=== PATIENT | male | born 1950 | race Caucasian/White ===

== ENCOUNTER 2017-11-27 09:09 | Outpatient (CLI) | payer OTHER, MEDICARE ==
[~2017-11-27 09:09] MED LIST: ADAL40PE SUBCUT; AMLO1TAB53 PO; ASPI-1265 PO; AZI25OT PO; CARCD120C PO; CARV-50 PO; DABI150C PO; POTA20PA3 PO; ROSU20TA PO
[2017-11-27 09:41] LABS: BASOPHILS % (AUTO) 0.5 % (0-1); EOSINOPHILS # (AUTO) 0.3 X10'3 (0-0.9); EOSINOPHILS % (AUTO) 5.4 % (0-6); HEMATOCRIT 48.3 % (42.0-52.0); HEMOGLOBIN 16.4 g/dl (14.0-17.9); LYMPHOCYTES # (AUTO) 1.9 X10'3 (1.1-4.8); MEAN CORPUSCULAR HEMOGLOBIN 29.4 PG (27.0-31.0); MEAN CORPUSCULAR VOLUME 86.6 FL (78-98); MEAN PLATELET VOLUME 8.2 FL (7.4-10.4); MONOCYTES # (AUTO) 0.6 X10'3 (0-0.9); MONOCYTES % (AUTO) 10.1 % (2-12); NEUTROPHILS # (AUTO) 3.1 X10'3 (1.8-7.7); PLATELET COUNT 251 X10'3 (140-440); RED BLOOD COUNT 5.58 X10'6 (4.70-6.10); RED CELL DISTRIBUTION WIDTH 14.3 % (11.5-14.5)
[2017-11-27 10:02] LABS: ALANINE AMINOTRANSFERASE 30 U/L (12-78); ALBUMIN/GLOBULIN RATIO 1.1 (1.1-1.5); ALKALINE PHOSPHATASE 70 IU/L (46-116); ANION GAP 9 (8-16); ASPARTATE AMINO TRANSFERASE 21 U/L (10-37); BILIRUBIN,TOTAL 0.6 MG/DL (0.1-1.0); BLOOD UREA NITROGEN 23 MG/DL (7-18); BUN/CREATININE RATIO 17.7 (5.4-32.0); CHLORIDE 104 MMOL/L (99-107); CHOL/HDL RATIO 6.8 (0.00-4.99); CHOLESTEROL 243 MG/DL (0-200); GLUCOSE 114 MG/DL (70-104); HDL CHOLESTEROL 36 MG/DL (35-60); LDL CHOLESTEROL 146 MG/DL (50-100); POTASSIUM 4.2 MMOL/L (3.5-5.1); SODIUM 144 MMOL/L (135-145); TOTAL CARBON DIOXIDE 30.7 MMOL/L (24-32); TOTAL PROTEIN 7.6 G/DL (6.4-8.2); TRIGLYCERIDES 321 MG/DL (20-135); eGFR 55 ML/MIN
[2017-12-01 05:20] LABS: PSA, ULTRASENSITIVE W/O SERIAL 0.389 ng/mL (0.000-4.000)
== END 2017-11-27 23:59 | disposition home or self-care (01) ==
LOC: LAB 09:09
DX: Z12.5 Encounter for screening for malignant neoplasm of prostate (principal); E78.5 Hyperlipidemia, unspecified; I10 Essential (primary) hypertension; Z87.891 Personal history of nicotine dependence
CPT/HCPCS: 36415; 80053; 80061; 84153; 84402; 84403; 85025

== ENCOUNTER 2018-01-21 08:34 | Outpatient (CLI) | payer OTHER, MEDICARE ==
[2018-01-21 09:16] LABS: CHOLESTEROL 133 MG/DL (0-200); HDL CHOLESTEROL 44 MG/DL (35-60); LDL CHOLESTEROL 63 MG/DL (50-100); TRIGLYCERIDES 172 MG/DL (20-135)
== END 2018-01-21 23:59 | disposition home or self-care (01) ==
LOC: LAB 08:34
PROVIDERS: ATTEND Internal Medicine Interventional Cardiology
DX: E78.4 Other hyperlipidemia (principal); I10 Essential (primary) hypertension; F17.200 Nicotine dependence, unspecified, uncomplicated
CPT/HCPCS: 36415; 80061

== ENCOUNTER 2018-04-22 08:36 | Outpatient (CLI) | payer OTHER, MEDICARE | END 2018-04-22 23:59 | disposition home or self-care (01) | LOC: 64 CT 08:36 | DX: N20.0 Calculus of kidney (principal); I10 Essential (primary) hypertension; Z87.891 Personal history of nicotine dependence | CPT/HCPCS: 74176 ==

== ENCOUNTER 2018-05-06 08:56 | Outpatient (CLI) | payer OTHER, MEDICARE ==
[2018-05-06 09:51] LABS: BASOPHILS % (AUTO) 0.4 % (0-1); EOSINOPHILS # (AUTO) 0.5 X10'3 (0-0.9); EOSINOPHILS % (AUTO) 4.8 % (0-6); HEMATOCRIT 54.1 % (42.0-52.0); LYMPHOCYTES # (AUTO) 2.2 X10'3 (1.1-4.8); LYMPHOCYTES % (AUTO) 20.5 % (21-51); MEAN CORPUSCULAR HEMOGLOBIN 27.6 PG (27.0-31.0); MEAN CORPUSCULAR HGB CONC 33.4 % (33.0-36.5); MEAN CORPUSCULAR VOLUME 82.6 FL (78-98); MEAN PLATELET VOLUME 8.8 FL (7.4-10.4); MONOCYTES % (AUTO) 9.4 % (2-12); NEUTROPHILS # (AUTO) 6.9 X10'3 (1.8-7.7); NEUTROPHILS % (AUTO) 64.9 % (42-75); PLATELET COUNT 248 X10'3 (140-440); RED BLOOD COUNT 6.55 X10'6 (4.70-6.10); RED CELL DISTRIBUTION WIDTH 14.3 % (11.5-14.5); WHITE BLOOD COUNT 10.6 X10'3 (4.5-11.0)
[2018-05-06 09:56] LABS: HEMOGLOBIN 18.1 g/dl (14.0-17.9)
[2018-05-06 10:08] LABS: ALANINE AMINOTRANSFERASE 42 U/L (12-78); ALBUMIN/GLOBULIN RATIO 0.9 (1.1-1.5); ALKALINE PHOSPHATASE 84 IU/L (46-116); ANION GAP 8 (8-16); ASPARTATE AMINO TRANSFERASE 29 U/L (10-37); BILIRUBIN,TOTAL 0.7 MG/DL (0.1-1.0); BLOOD UREA NITROGEN 11 MG/DL (7-18); BUN/CREATININE RATIO 9.6 (5.4-32.0); CALCIUM 9.1 MG/DL (8.5-10.1); CHLORIDE 101 MMOL/L (99-107); CREATININE 1.15 MG/DL (0.60-1.10); GLUCOSE 95 MG/DL (70-104); LIPASE 148 U/L (73-393); POTASSIUM 4.2 MMOL/L (3.5-5.1); SODIUM 136 MMOL/L (135-145); TOTAL CARBON DIOXIDE 27.1 MMOL/L (24-32); TOTAL PROTEIN 8.3 G/DL (6.4-8.2); eGFR 64 ML/MIN
[2018-05-07 14:33] LABS: CARBOHYDRATE ANTIGEN 19-9 8 U/mL (0-35)
[2018-05-07 17:17] LABS: ANTINUCLEAR ANTIBODIES Negative (Negative)
[2018-05-12 05:59] LABS: IMMUNOGLOBULIN G, QN, SERUM 1029 mg/dL (700-1600)
== END 2018-05-06 23:59 | disposition home or self-care (01) ==
LOC: LAB 08:56
PROVIDERS: ATTEND Internal Medicine Gastroenterology
DX: K86.1 Other chronic pancreatitis (principal); C25.0 Malignant neoplasm of head of pancreas; R10.9 Unspecified abdominal pain; I10 Essential (primary) hypertension; Z87.891 Personal history of nicotine dependence
CPT/HCPCS: 36415; 80053; 82784; 82787; 83690; 85025; 86038; 86301

== ENCOUNTER 2018-07-21 09:00 | Outpatient (CLI) | payer OTHER, MEDICARE ==
[~2018-07-21 09:00] MED LIST changes: -POTA20PA3 PO; +POTA20PA40 PO
== END 2018-07-21 23:59 | disposition home or self-care (01) ==
LOC: LAB 09:00
PROVIDERS: ATTEND Internal Medicine Gastroenterology
DX: C25.0 Malignant neoplasm of head of pancreas (principal); K86.1 Other chronic pancreatitis; I10 Essential (primary) hypertension; Z87.891 Personal history of nicotine dependence; Z72.89 Other problems related to lifestyle; Z79.82 Long term (current) use of aspirin
CPT/HCPCS: 36415; 82784; 82787; 83690

== ENCOUNTER 2018-12-30 11:08 | Outpatient (CLI) | payer OTHER, MEDICARE ==
[~2018-12-30 11:08] MED LIST changes: +AMLO-363 PO; -AMLO1TAB53 PO
[2018-12-30 11:47] LABS: ALBUMIN 3.8 G/DL (3.4-5.0); ANION GAP 9 (8-16); BLOOD UREA NITROGEN 14 MG/DL (7-18); BUN/CREATININE RATIO 12.2 (5.4-32.0); CHLORIDE 103 MMOL/L (99-107); CREATININE 1.15 MG/DL (0.60-1.10); GLUCOSE 119 MG/DL (70-104); POTASSIUM 4.6 MMOL/L (3.5-5.1); SODIUM 138 MMOL/L (135-145); eGFR 63 ML/MIN
== END 2018-12-30 23:59 | disposition home or self-care (01) ==
LOC: LAB 11:08
PROVIDERS: ATTEND Internal Medicine Interventional Cardiology
DX: I48.0 Paroxysmal atrial fibrillation (principal); I25.10 Atherosclerotic heart disease of native coronary artery without angina pectoris; E78.49 Other hyperlipidemia; D45 Polycythemia vera; R09.89 Other specified symptoms and signs involving the circulatory and respiratory systems; G47.33 Obstructive sleep apnea (adult) (pediatric); I10 Essential (primary) hypertension; Z88.0 Allergy status to penicillin; Z87.891 Personal history of nicotine dependence; Z79.899 Other long term (current) drug therapy
CPT/HCPCS: 36415; 80048

== ENCOUNTER 2019-04-04 09:00 | Outpatient (CLI) | payer OTHER, MEDICARE ==
[~2019-04-04 09:00] MED LIST changes: -ROSU20TA PO; +ROSU20TA2 PO
[2019-04-04 09:52] LABS: BASOPHILS # (AUTO) 0.1 X10'3 (0-0.2); MEAN PLATELET VOLUME 8.9 FL (7.4-10.4); NEUTROPHILS # (AUTO) 5.1 X10'3 (1.8-7.7)
[2019-04-04 09:53] LABS: ALANINE AMINOTRANSFERASE 39 U/L (12-78); ALBUMIN 4.1 G/DL (3.4-5.0); ALBUMIN/GLOBULIN RATIO 1.1 (1.1-1.5); ALKALINE PHOSPHATASE 69 IU/L (46-116); ANION GAP 5 (8-16); ASPARTATE AMINO TRANSFERASE 26 U/L (10-37); BILIRUBIN,TOTAL 0.8 MG/DL (0.1-1.0); BLOOD UREA NITROGEN 19 MG/DL (7-18); CALCIUM 8.7 MG/DL (8.5-10.1); CHLORIDE 103 MMOL/L (99-107); CHOLESTEROL 133 MG/DL (0-200); CREATININE 1.12 MG/DL (0.60-1.10); GLUCOSE 102 MG/DL (70-104); HDL CHOLESTEROL 45 MG/DL (35-60); LDL CHOLESTEROL 70 MG/DL (50-100); POTASSIUM 4.3 MMOL/L (3.5-5.1); SODIUM 138 MMOL/L (135-145); TOTAL PROTEIN 7.8 G/DL (6.4-8.2); TRIGLYCERIDES 143 MG/DL (20-135); eGFR 65 ML/MIN
[2019-04-04 09:54] LABS: BASOPHILS % (AUTO) 0.6 % (0-1); EOSINOPHILS # (AUTO) 0.3 X10'3 (0-0.9); EOSINOPHILS % (AUTO) 4.1 % (0-6); HEMATOCRIT 54.4 % (42.0-52.0); LYMPHOCYTES % (AUTO) 23.8 % (21-51); MEAN CORPUSCULAR HEMOGLOBIN 28.3 PG (27.0-31.0); MEAN CORPUSCULAR HGB CONC 34.2 g/dL (33.0-36.5); MEAN CORPUSCULAR VOLUME 82.9 FL (78-98); MONOCYTES # (AUTO) 0.9 X10'3 (0-0.9); MONOCYTES % (AUTO) 10.3 % (2-12); NEUTROPHILS % (AUTO) 61.2 % (42-75); PLATELET COUNT 226 X10'3 (140-440); RED BLOOD COUNT 6.57 X10'6 (4.70-6.10); RED CELL DISTRIBUTION WIDTH 15.7 % (11.5-14.5); WHITE BLOOD COUNT 8.3 X10'3 (4.5-11.0)
[2019-04-04 10:06] LABS: HEMOGLOBIN 18.6 g/dl (14.0-17.9)
[2019-04-04 10:21] LABS: PLATELET ESTIMATE NORMAL; TOTAL CELLS COUNTED 100
[2019-04-04 10:22] LABS: ANISOCYTOSIS 1+
== END 2019-04-04 23:59 | disposition home or self-care (01) ==
LOC: LAB 09:00
DX: Z12.5 Encounter for screening for malignant neoplasm of prostate (principal); I10 Essential (primary) hypertension; E78.5 Hyperlipidemia, unspecified; Z87.891 Personal history of nicotine dependence
CPT/HCPCS: 36415; 80053; 80061; 84153; 85025

== ENCOUNTER 2019-05-03 14:14 | Emergency (ER) | payer OTHER, MEDICARE ==
[~2019-05-03] VITALS: Ht 182.9 cm; Wt 89.0 kg
[2019-05-03] MEDS ORDERED: acetaminophen 325mg tablet PO ONE (15:10)
[2019-05-03 15:37] VITALS: BP 151/78
== END 2019-05-03 15:52 | disposition home or self-care (01) ==
LOC: ER 14:15
DX: S81.812A Laceration without foreign body, left lower leg, initial encounter (principal); I25.10 Atherosclerotic heart disease of native coronary artery without angina pectoris; E78.00 Pure hypercholesterolemia, unspecified; I10 Essential (primary) hypertension; M19.90 Unspecified osteoarthritis, unspecified site; I48.91 Unspecified atrial fibrillation; Z98.61 Coronary angioplasty status; Z90.89 Acquired absence of other organs; Z98.890 Other specified postprocedural states; Z88.0 Allergy status to penicillin; Z79.82 Long term (current) use of aspirin; Z79.899 Other long term (current) drug therapy; X58.XXXA Exposure to other specified factors, initial encounter; Y93.89 Activity, other specified; Y92.89 Other specified places as the place of occurrence of the external cause; Y99.8 Other external cause status
CPT/HCPCS: 12001; 93971; 99284

== ENCOUNTER 2019-07-22 08:29 | Emergency (ER) | payer OTHER, MEDICARE ==
[~2019-07-22] VITALS: Ht 182.9 cm; Wt 90.0 kg
[2019-07-22 10:30] VITALS: BP 154/99
== END 2019-07-22 11:11 | disposition home or self-care (01) ==
LOC: ER 08:29
DX: S92.352A Displaced fracture of fifth metatarsal bone, left foot, initial encounter for closed fracture (principal); I25.10 Atherosclerotic heart disease of native coronary artery without angina pectoris; E78.00 Pure hypercholesterolemia, unspecified; I10 Essential (primary) hypertension; M19.90 Unspecified osteoarthritis, unspecified site; Z95.5 Presence of coronary angioplasty implant and graft; Z90.89 Acquired absence of other organs; Z88.0 Allergy status to penicillin; Z79.82 Long term (current) use of aspirin; Z79.899 Other long term (current) drug therapy; X50.1XXA Overexertion from prolonged static or awkward postures, initial encounter; Y93.89 Activity, other specified; Y92.89 Other specified places as the place of occurrence of the external cause; Y99.9 Unspecified external cause status
CPT/HCPCS: 73564; 73630; 99284

== ENCOUNTER 2019-07-27 10:38 | Outpatient (CLI) | payer OTHER, MEDICARE ==
[2019-07-27 12:31] LABS: BASOPHILS # (AUTO) 0.1 X10'3 (0-0.2); BASOPHILS % (AUTO) 0.9 % (0-1); EOSINOPHILS # (AUTO) 0.3 X10'3 (0-0.9); HEMATOCRIT 56.3 % (42.0-52.0); LYMPHOCYTES # (AUTO) 2.2 X10'3 (1.1-4.8); LYMPHOCYTES % (AUTO) 20.2 % (21-51); MEAN CORPUSCULAR HEMOGLOBIN 29.3 PG (27.0-31.0); MEAN CORPUSCULAR HGB CONC 34.3 g/dL (33.0-36.5); MEAN CORPUSCULAR VOLUME 85.4 FL (78-98); MEAN PLATELET VOLUME 8.2 FL (7.4-10.4); MONOCYTES # (AUTO) 1.1 X10'3 (0-0.9); NEUTROPHILS % (AUTO) 65.9 % (42-75); PLATELET COUNT 260 X10'3 (140-440); RED BLOOD COUNT 6.59 X10'6 (4.70-6.10); RED CELL DISTRIBUTION WIDTH 15.5 % (11.5-14.5); WHITE BLOOD COUNT 10.7 X10'3 (4.5-11.0)
[2019-07-27 12:43] LABS: ALANINE AMINOTRANSFERASE 49 U/L (12-78); ALBUMIN 4.2 G/DL (3.4-5.0); ALBUMIN/GLOBULIN RATIO 1.1 (1.1-1.5); ALKALINE PHOSPHATASE 86 IU/L (46-116); ANION GAP 10 (8-16); ASPARTATE AMINO TRANSFERASE 26 U/L (10-37); BILIRUBIN,TOTAL 0.6 MG/DL (0.1-1.0); BLOOD UREA NITROGEN 11 MG/DL (7-18); BUN/CREATININE RATIO 9.6 (5.4-32.0); CALCIUM 8.9 MG/DL (8.5-10.1); CHLORIDE 103 MMOL/L (99-107); CREATININE 1.14 MG/DL (0.60-1.10); GLUCOSE 83 MG/DL (70-104); POTASSIUM 4.1 MMOL/L (3.5-5.1); SODIUM 141 MMOL/L (135-145); TOTAL CARBON DIOXIDE 28.2 MMOL/L (24-32); eGFR 64 ML/MIN
[2019-07-27 12:55] LABS: HEMOGLOBIN 19.3 g/dl (14.0-17.9)
[2019-07-30 19:38] LABS: IMMUNOGLOBULIN G, QN, SERUM 862 mg/dL (700-1600)
== END 2019-07-27 23:59 | disposition home or self-care (01) ==
LOC: RAD 10:38
DX: S83.242A Other tear of medial meniscus, current injury, left knee, initial encounter (principal); M94.262 Chondromalacia, left knee; R60.0 Localized edema; X58.XXXA Exposure to other specified factors, initial encounter; Y93.89 Activity, other specified; Y92.89 Other specified places as the place of occurrence of the external cause; Y99.8 Other external cause status
CPT/HCPCS: 36415; 73718; 80053; 82784; 82787; 85025

== ENCOUNTER 2019-08-04 12:32 | Outpatient (CLI) | payer OTHER, MEDICARE | END 2019-08-04 13:30 | disposition home or self-care (01) | LOC: ORTHO 12:32 | PROVIDERS: ATTEND Orthopaedic Surgery | DX: S80.02XD Contusion of left knee, subsequent encounter (principal); I10 Essential (primary) hypertension; F17.200 Nicotine dependence, unspecified, uncomplicated; X58.XXXD Exposure to other specified factors, subsequent encounter | CPT/HCPCS: G0463 ==

== ENCOUNTER → 2019-09-09 | Outpatient (CLI) | payer MEDICARE, OTHER ==
[2019-09-09 12:49] LABS: BASOPHILS # (AUTO) 0.1 X10'3 (0-0.2); BASOPHILS % (AUTO) 0.9 % (0-1); EOSINOPHILS # (AUTO) 0.3 X10'3 (0-0.9); EOSINOPHILS % (AUTO) 5.1 % (0-6); HEMATOCRIT 50.3 % (42.0-52.0); HEMOGLOBIN 17.5 g/dl (14.0-17.9); LYMPHOCYTES # (AUTO) 1.8 X10'3 (1.1-4.8); LYMPHOCYTES % (AUTO) 27.4 % (21-51); MEAN CORPUSCULAR HEMOGLOBIN 29.2 PG (27.0-31.0); MEAN CORPUSCULAR HGB CONC 34.8 g/dL (33.0-36.5); MEAN CORPUSCULAR VOLUME 83.9 FL (78-98); MONOCYTES # (AUTO) 0.6 X10'3 (0-0.9); MONOCYTES % (AUTO) 9.2 % (2-12); NEUTROPHILS # (AUTO) 3.7 X10'3 (1.8-7.7); NEUTROPHILS % (AUTO) 57.4 % (42-75); PLATELET COUNT 229 X10'3 (140-440); RED CELL DISTRIBUTION WIDTH 13.9 % (11.5-14.5); WHITE BLOOD COUNT 6.4 X10'3 (4.5-11.0)
== END | disposition home or self-care (01) ==
LOC: LAB 12:12
PROVIDERS: ATTEND Internal Medicine Hematology
DX: D75.1 Secondary polycythemia (principal); I10 Essential (primary) hypertension; Z87.891 Personal history of nicotine dependence
CPT/HCPCS: 36415; 85025

== ENCOUNTER 2019-10-27 09:44 | Outpatient (CLI) | payer OTHER ==
[2019-10-27 10:34] LABS: BASOPHILS # (AUTO) 0.1 X10'3 (0-0.2); BASOPHILS % (AUTO) 0.8 % (0-1); EOSINOPHILS # (AUTO) 0.2 X10'3 (0-0.9); EOSINOPHILS % (AUTO) 3.1 % (0-6); HEMATOCRIT 50.5 % (42.0-52.0); HEMOGLOBIN 17.3 g/dl (14.0-17.9); LYMPHOCYTES % (AUTO) 30.5 % (21-51); MEAN CORPUSCULAR HEMOGLOBIN 29.8 PG (27.0-31.0); MEAN CORPUSCULAR HGB CONC 34.3 g/dL (33.0-36.5); MEAN CORPUSCULAR VOLUME 86.7 FL (78-98); MEAN PLATELET VOLUME 8.2 FL (7.4-10.4); MONOCYTES # (AUTO) 0.7 X10'3 (0-0.9); MONOCYTES % (AUTO) 11.2 % (2-12); NEUTROPHILS # (AUTO) 3.5 X10'3 (1.8-7.7); NEUTROPHILS % (AUTO) 54.4 % (42-75); PLATELET COUNT 230 X10'3 (140-440); RED BLOOD COUNT 5.82 X10'6 (4.70-6.10); RED CELL DISTRIBUTION WIDTH 15.8 % (11.5-14.5); WHITE BLOOD COUNT 6.5 X10'3 (4.5-11.0)
[2019-10-27 10:50] LABS: ALANINE AMINOTRANSFERASE 44 U/L (12-78); ALBUMIN 4.3 G/DL (3.4-5.0); ALBUMIN/GLOBULIN RATIO 1.3 (1.1-1.5); ALKALINE PHOSPHATASE 73 IU/L (46-116); ANION GAP 5 (8-16); ASPARTATE AMINO TRANSFERASE 23 U/L (10-37); BILIRUBIN,TOTAL 0.6 MG/DL (0.1-1.0); BLOOD UREA NITROGEN 20 MG/DL (7-18); BUN/CREATININE RATIO 17.7 (5.4-32.0); CALCIUM 9.2 MG/DL (8.5-10.1); CHLORIDE 107 MMOL/L (99-107); CREATININE 1.13 MG/DL (0.60-1.10); GLUCOSE 109 MG/DL (70-104); POTASSIUM 4.2 MMOL/L (3.5-5.1); SODIUM 141 MMOL/L (135-145); TOTAL CARBON DIOXIDE 29.3 MMOL/L (24-32); TOTAL PROTEIN 7.7 G/DL (6.4-8.2); eGFR 65 ML/MIN
== END 2019-10-27 23:59 | disposition home or self-care (01) ==
LOC: LAB 09:44
PROVIDERS: ATTEND Internal Medicine Hematology
DX: D75.1 Secondary polycythemia (principal); I10 Essential (primary) hypertension; Z88.0 Allergy status to penicillin
CPT/HCPCS: 36415; 80053; 85025

== ENCOUNTER 2020-04-04 08:06 | Outpatient (CLI) | payer OTHER ==
[2020-04-04 08:51] LABS: HEMOGLOBIN A1C 5.9 % (4.5-6.2)
[2020-04-04 08:53] LABS: BASOPHILS % (AUTO) 0.7 % (0-1); EOSINOPHILS # (AUTO) 0.2 X10'3 (0-0.9); HEMATOCRIT 54.9 % (42.0-52.0); LYMPHOCYTES # (AUTO) 1.7 X10'3 (1.1-4.8); LYMPHOCYTES % (AUTO) 23.1 % (21-51); MEAN CORPUSCULAR HEMOGLOBIN 27.9 PG (27.0-31.0); MEAN CORPUSCULAR HGB CONC 32.9 g/dL (33.0-36.5); MEAN PLATELET VOLUME 8.6 FL (7.4-10.4); MONOCYTES # (AUTO) 0.7 X10'3 (0-0.9); MONOCYTES % (AUTO) 9.9 % (2-12); NEUTROPHILS # (AUTO) 4.7 X10'3 (1.8-7.7); NEUTROPHILS % (AUTO) 63.3 % (42-75); PLATELET COUNT 204 X10'3 (140-440); RED BLOOD COUNT 6.47 X10'6 (4.70-6.10); RED CELL DISTRIBUTION WIDTH 16.2 % (11.5-14.5); WHITE BLOOD COUNT 7.4 X10'3 (4.5-11.0)
[2020-04-04 08:55] LABS: ALANINE AMINOTRANSFERASE 55 U/L (12-78); ALBUMIN 4.2 G/DL (3.4-5.0); ALBUMIN/GLOBULIN RATIO 1.2 (1.1-1.5); ALKALINE PHOSPHATASE 73 IU/L (46-116); ANION GAP 6 (8-16); ASPARTATE AMINO TRANSFERASE 29 U/L (10-37); BILIRUBIN,TOTAL 0.9 MG/DL (0.1-1.0); BLOOD UREA NITROGEN 15 MG/DL (7-18); BUN/CREATININE RATIO 12.4 (5.4-32.0); CHLORIDE 105 MMOL/L (99-107); CHOL/HDL RATIO 2.7 (0.00-4.99); CHOLESTEROL 148 MG/DL (0-200); CREATININE 1.21 MG/DL (0.60-1.10); GLUCOSE 103 MG/DL (70-104); HDL CHOLESTEROL 54 MG/DL (35-60); LDL CHOLESTEROL 75 MG/DL (50-100); POTASSIUM 3.9 MMOL/L (3.5-5.1); SODIUM 141 MMOL/L (135-145); TOTAL CARBON DIOXIDE 30.5 MMOL/L (24-32); TOTAL PROTEIN 7.6 G/DL (6.4-8.2); TRIGLYCERIDES 101 MG/DL (20-135); eGFR 60 ML/MIN
[2020-04-04 08:58] LABS: HEMOGLOBIN 18.1 g/dl (14.0-17.9)
[2020-04-05 13:12] LABS: PSA, ULTRASENSITIVE W/O SERIAL 0.577 ng/mL (0.000-4.000)
[2020-04-05 17:13] LABS: MICROALB/CRT, RATIO 168 mg/g creat (0-29)
== END 2020-04-04 23:59 | disposition home or self-care (01) ==
LOC: LAB SPEC 08:06 → LAB 23:59
DX: Z12.5 Encounter for screening for malignant neoplasm of prostate (principal); I10 Essential (primary) hypertension; E78.5 Hyperlipidemia, unspecified
CPT/HCPCS: 36415; 80053; 80061; 82043; 82570; 83036; 84153; 84402; 84403; 85025

== ENCOUNTER → 2020-06-29 | Outpatient (CLI) | payer BC ==
[2020-06-29 08:54] LABS: CHOL/HDL RATIO 5.5 (0.00-4.99); CHOLESTEROL 227 MG/DL (0-200); HDL CHOLESTEROL 41 MG/DL (35-60); LDL CHOLESTEROL 160 MG/DL (50-100); TRIGLYCERIDES 154 MG/DL (20-135)
== END | disposition home or self-care (01) ==
LOC: LAB 07:32
DX: E78.5 Hyperlipidemia, unspecified (principal)
CPT/HCPCS: 36415; 80061; 84402; 84403

== ENCOUNTER 2020-10-15 12:00 | Outpatient (CLI) | payer BC ==
[2020-10-15 12:44] LABS: BASOPHILS # (AUTO) 0.1 X10'3 (0-0.2); BASOPHILS % (AUTO) 0.9 % (0-1); EOSINOPHILS # (AUTO) 0.3 X10'3 (0-0.9); EOSINOPHILS % (AUTO) 4.8 % (0-6); HEMATOCRIT 51.7 % (42.0-52.0); HEMOGLOBIN 17.1 g/dl (14.0-17.9); LYMPHOCYTES # (AUTO) 2.2 X10'3 (1.1-4.8); LYMPHOCYTES % (AUTO) 30.1 % (21-51); MEAN CORPUSCULAR HEMOGLOBIN 26.7 PG (27.0-31.0); MEAN CORPUSCULAR HGB CONC 33.1 g/dL (33.0-36.5); MEAN CORPUSCULAR VOLUME 80.8 FL (78-98); MEAN PLATELET VOLUME 8.3 FL (7.4-10.4); MONOCYTES # (AUTO) 0.7 X10'3 (0-0.9); NEUTROPHILS # (AUTO) 3.9 X10'3 (1.8-7.7); NEUTROPHILS % (AUTO) 54.2 % (42-75); PLATELET COUNT 263 X10'3 (140-440); RED CELL DISTRIBUTION WIDTH 15.3 % (11.5-14.5); WHITE BLOOD COUNT 7.2 X10'3 (4.5-11.0)
[2020-10-15 12:59] LABS: ALANINE AMINOTRANSFERASE 47 U/L (12-78); ALBUMIN 4.4 G/DL (3.4-5.0); ALBUMIN/GLOBULIN RATIO 1.2 (1.1-1.5); ALKALINE PHOSPHATASE 77 IU/L (46-116); ANION GAP 10 (8-16); ASPARTATE AMINO TRANSFERASE 27 U/L (10-37); BILIRUBIN,DIRECT 0.1 MG/DL (0-0.3); BILIRUBIN,TOTAL 0.5 MG/DL (0.1-1.0); BLOOD UREA NITROGEN 16 MG/DL (7-18); BUN/CREATININE RATIO 15.4 (5.4-32.0); CALCIUM 9.1 MG/DL (8.5-10.1); CHLORIDE 106 MMOL/L (99-107); CHOL/HDL RATIO 3.2 (0.00-4.99); CHOLESTEROL 172 MG/DL (0-200); CREATININE 1.04 MG/DL (0.60-1.10); GLUCOSE 105 MG/DL (70-104); HDL CHOLESTEROL 53 MG/DL (35-60); LDL CHOLESTEROL 96 MG/DL (50-100); POTASSIUM 4.7 MMOL/L (3.5-5.1); SODIUM 143 MMOL/L (135-145); TOTAL CARBON DIOXIDE 26.6 MMOL/L (24-32); TOTAL PROTEIN 8.1 G/DL (6.4-8.2); TRIGLYCERIDES 150 MG/DL (20-135); eGFR 71 ML/MIN
== END 2020-10-15 23:59 | disposition home or self-care (01) ==
LOC: CARD DIAG 12:00
PROVIDERS: ATTEND Nurse Practitioner Family
DX: I08.0 Rheumatic disorders of both mitral and aortic valves (principal); E78.5 Hyperlipidemia, unspecified; I25.10 Atherosclerotic heart disease of native coronary artery without angina pectoris; I48.0 Paroxysmal atrial fibrillation
CPT/HCPCS: 36415; 80053; 80061; 82248; 85025; 93306

== ENCOUNTER → 2021-04-08 | Outpatient (CLI) | payer BC ==
[2021-04-08 08:56] LABS: BASOPHILS # (AUTO) 0.1 X10'3 (0-0.2); BASOPHILS % (AUTO) 1.1 % (0-1); EOSINOPHILS # (AUTO) 0.5 X10'3 (0-0.9); EOSINOPHILS % (AUTO) 4.9 % (0-6); HEMATOCRIT 52.8 % (42.0-52.0); LYMPHOCYTES # (AUTO) 1.8 X10'3 (1.1-4.8); LYMPHOCYTES % (AUTO) 18.7 % (21-51); MEAN CORPUSCULAR HEMOGLOBIN 27.8 PG (27.0-31.0); MEAN CORPUSCULAR HGB CONC 34.1 g/dL (33.0-36.5); MEAN CORPUSCULAR VOLUME 81.5 FL (78-98); MEAN PLATELET VOLUME 8.2 FL (7.4-10.4); MONOCYTES # (AUTO) 0.8 X10'3 (0-0.9); MONOCYTES % (AUTO) 8.1 % (2-12); NEUTROPHILS # (AUTO) 6.5 X10'3 (1.8-7.7); NEUTROPHILS % (AUTO) 67.2 % (42-75); PLATELET COUNT 302 X10'3 (140-440); RED BLOOD COUNT 6.47 X10'6 (4.70-6.10); RED CELL DISTRIBUTION WIDTH 14.3 % (11.5-14.5); WHITE BLOOD COUNT 9.6 X10'3 (4.5-11.0)
[2021-04-08 09:15] LABS: CLARITY,URINE SLIGHTLY CLOUDY (Clear); COLOR,URINE YELLOW (Yellow); GLUCOSE, URINE NEGATIVE (Neg); KETONES,URINE NEGATIVE (Neg); LEUKOCYTE ESTERASE ,URINE NEGATIVE (Neg); NITRITES, URINE NEGATIVE (Neg); OCCULT BLOOD,URINE TRACE-LYSED (Neg); PROTEIN,URINE 100 mg/dl (Neg); UROBILINOGEN,URINE 0.2 E.U/dL (0.2-1.0)
[2021-04-08 09:23] LABS: UA COLLECTION TYPE CLN CATCH MIDSTREAM
[2021-04-08 09:29] LABS: MUCUS STRANDS NONE SEEN /LPF (Neg); SQUAMOUS EPITHELIAL CELL,UR NONE SEEN /LPF (FEW); TRANSITIONAL EPI CELLS,URINE FEW /HPF
[2021-04-08 09:30] LABS: BACTERIA,URINE NONE SEEN /HPF (Neg); RBC,URINE 0-2 /HPF (0-2); WBC,URINE NONE SEEN /HPF (0-4)
[2021-04-08 09:33] LABS: ALANINE AMINOTRANSFERASE 31 U/L (12-78); ALBUMIN 4.4 G/DL (3.4-5.0); ALBUMIN/GLOBULIN RATIO 1.2 (1.1-1.5); ALKALINE PHOSPHATASE 93 IU/L (46-116); ANION GAP 8 (8-16); ASPARTATE AMINO TRANSFERASE 25 U/L (10-37); BILIRUBIN,TOTAL 0.7 MG/DL (0.1-1.0); BLOOD UREA NITROGEN 19 MG/DL (7-18); CALCIUM 9.1 MG/DL (8.5-10.1); CHLORIDE 104 MMOL/L (99-107); CHOL/HDL RATIO 3.3 (0.00-4.99); CHOLESTEROL 156 MG/DL (0-200); CREATININE 1.12 MG/DL (0.60-1.10); GLUCOSE 122 MG/DL (70-104); HDL CHOLESTEROL 48 MG/DL (35-60); LDL CHOLESTEROL 77 MG/DL (50-100); POTASSIUM 4.7 MMOL/L (3.5-5.1); SODIUM 139 MMOL/L (135-145); TOTAL CARBON DIOXIDE 26.8 MMOL/L (24-32); TOTAL PROTEIN 8.2 G/DL (6.4-8.2); TRIGLYCERIDES 165 MG/DL (20-135); eGFR 65 ML/MIN
== END | disposition home or self-care (01) ==
LOC: LAB 08:13
PROVIDERS: ATTEND Family Medicine
DX: E78.5 Hyperlipidemia, unspecified (principal); D64.9 Anemia, unspecified; R53.83 Other fatigue; E07.9 Disorder of thyroid, unspecified; N30.90 Cystitis, unspecified without hematuria
CPT/HCPCS: 36415; 80053; 80061; 81001; 84439; 84443; 85025

== ENCOUNTER 2021-09-30 08:14 | Outpatient (CLI) | payer BC ==
[2021-09-30 09:34] LABS: BASOPHILS % (AUTO) 0.5 % (0-1); EOSINOPHILS # (AUTO) 0.4 X10'3 (0-0.9); EOSINOPHILS % (AUTO) 4.8 % (0-6); HEMATOCRIT 50.1 % (42.0-52.0); HEMOGLOBIN 17.2 g/dl (14.0-17.9); LYMPHOCYTES # (AUTO) 1.8 X10'3 (1.1-4.8); LYMPHOCYTES % (AUTO) 22.5 % (21-51); MEAN CORPUSCULAR HEMOGLOBIN 29.1 PG (27.0-31.0); MEAN CORPUSCULAR HGB CONC 34.4 g/dL (33.0-36.5); MEAN CORPUSCULAR VOLUME 84.6 FL (78-98); MEAN PLATELET VOLUME 8.6 FL (7.4-10.4); MONOCYTES # (AUTO) 0.7 X10'3 (0-0.9); MONOCYTES % (AUTO) 8.2 % (2-12); NEUTROPHILS # (AUTO) 5.1 X10'3 (1.8-7.7); PLATELET COUNT 244 X10'3 (140-440); RED BLOOD COUNT 5.92 X10'6 (4.70-6.10); RED CELL DISTRIBUTION WIDTH 13.7 % (11.5-14.5)
[2021-09-30 09:43] LABS: ALANINE AMINOTRANSFERASE 51 U/L (12-78); ALBUMIN 4.1 G/DL (3.4-5.0); ALBUMIN/GLOBULIN RATIO 1.1 (1.1-1.5); ALKALINE PHOSPHATASE 85 IU/L (46-116); ANION GAP 8 (8-16); ASPARTATE AMINO TRANSFERASE 25 U/L (10-37); BILIRUBIN,TOTAL 0.5 MG/DL (0.1-1.0); BLOOD UREA NITROGEN 18 MG/DL (7-18); CALCIUM 8.8 MG/DL (8.5-10.1); CHLORIDE 107 MMOL/L (99-107); CHOL/HDL RATIO 3.7 (0.00-4.99); CHOLESTEROL 172 MG/DL (0-200); CREATININE 1.06 MG/DL (0.60-1.10); GLUCOSE 133 MG/DL (70-104); HDL CHOLESTEROL 47 MG/DL (35-60); LDL CHOLESTEROL 94 MG/DL (50-100); POTASSIUM 4.2 MMOL/L (3.5-5.1); SODIUM 143 MMOL/L (135-145); TOTAL CARBON DIOXIDE 28.5 MMOL/L (24-32); TOTAL PROTEIN 7.9 G/DL (6.4-8.2); TRIGLYCERIDES 173 MG/DL (20-135); eGFR 69 ML/MIN
[2021-10-01 09:35] LABS: PSA, ULTRASENSITIVE W/O SERIAL 0.481 ng/mL (0.000-4.000)
== END 2021-09-30 23:59 | disposition home or self-care (01) ==
LOC: LAB 08:14
PROVIDERS: ATTEND Family Medicine
DX: I10 Essential (primary) hypertension (principal); E78.5 Hyperlipidemia, unspecified; D58.2 Other hemoglobinopathies
CPT/HCPCS: 36415; 80053; 80061; 84153; 84402; 84403; 85025

== ENCOUNTER 2022-05-30 08:17 | Outpatient (CLI) | payer BC ==
[2022-05-30 08:45] LABS: BASOPHILS # (AUTO) 0.1 X10'3 (0-0.2); BASOPHILS % (AUTO) 1.1 % (0-1); EOSINOPHILS # (AUTO) 0.4 X10'3 (0-0.9); HEMATOCRIT 51.3 % (42.0-52.0); HEMOGLOBIN 17.7 g/dl (14.0-17.9); LYMPHOCYTES # (AUTO) 1.7 X10'3 (1.1-4.8); LYMPHOCYTES % (AUTO) 28.5 % (21-51); MEAN CORPUSCULAR HGB CONC 34.6 g/dL (33.0-36.5); MEAN CORPUSCULAR VOLUME 83.7 FL (78-98); MEAN PLATELET VOLUME 8.4 FL (7.4-10.4); MONOCYTES # (AUTO) 0.6 X10'3 (0-0.9); MONOCYTES % (AUTO) 10.6 % (2-12); NEUTROPHILS # (AUTO) 3.2 X10'3 (1.8-7.7); NEUTROPHILS % (AUTO) 52.8 % (42-75); PLATELET COUNT 228 X10'3 (140-440); RED BLOOD COUNT 6.12 X10'6 (4.70-6.10); RED CELL DISTRIBUTION WIDTH 14.9 % (11.5-14.5)
[2022-05-30 09:34] LABS: ALANINE AMINOTRANSFERASE 41 U/L (12-78); ALBUMIN 4.3 G/DL (3.4-5.0); ALBUMIN/GLOBULIN RATIO 1.2 (1.1-1.5); ALKALINE PHOSPHATASE 75 IU/L (46-116); ANION GAP 10 (8-16); ASPARTATE AMINO TRANSFERASE 26 U/L (10-37); BILIRUBIN,TOTAL 0.8 MG/DL (0.1-1.0); BLOOD UREA NITROGEN 13 MG/DL (7-18); CALCIUM 8.9 MG/DL (8.5-10.1); CHLORIDE 102 MMOL/L (99-107); CHOLESTEROL 142 MG/DL (0-200); CREATININE 1.08 MG/DL (0.60-1.10); GLUCOSE 113 MG/DL (70-104); HDL CHOLESTEROL 47 MG/DL (35-60); LDL CHOLESTEROL 67 MG/DL (50-100); MAGNESIUM 2.3 MG/DL (1.5-2.4); POTASSIUM 4.2 MMOL/L (3.5-5.1); SODIUM 140 MMOL/L (135-145); TOTAL CARBON DIOXIDE 28.2 MMOL/L (24-32); TOTAL PROTEIN 7.9 G/DL (6.4-8.2); TRIGLYCERIDES 205 MG/DL (20-135); eGFR 68 ML/MIN
[2022-05-30 09:49] LABS: HEMOGLOBIN A1C 5.8 % (4.5-6.2)
[2022-05-31 08:57] LABS: PSA, FREE 0.17 ng/mL
[2022-06-04 11:32] LABS: TESTOSTERONE, FREE, DIRECT 1.3 pg/mL (6.6-18.1)
== END 2022-05-30 23:59 | disposition home or self-care (01) ==
LOC: LAB 08:17
PROVIDERS: ATTEND Family Medicine
DX: E78.5 Hyperlipidemia, unspecified (principal); I10 Essential (primary) hypertension; Z91.09 Other allergy status, other than to drugs and biological substances; K21.9 Gastro-esophageal reflux disease without esophagitis
CPT/HCPCS: 36415; 80053; 80061; 83036; 83735; 84153; 84154; 84402; 84403; 84439; 84443; 85025

== ENCOUNTER 2022-07-09 08:33 | Day surgery (SDC) | payer BC ==
[~2022-07-09 08:33] MED LIST changes: +MIDAZolam 1 MG/ML 5ML VIAL ONE; +fentaNYL/PF 50MCG/1 ML 2ML syringe ONE
[2022-07-09 08:45] VITALS: BP 141/86
[2022-07-09] MEDS ORDERED: FLO0.4C PO (09:01)
[2022-07-09] MEDS ORDERED: RIVA20TA PO (09:02)
[2022-07-09] MEDS ORDERED: TEST200V33 IM (09:03)
[2022-07-09] MEDS ORDERED: OMEP20CA16 PO (09:07)
[2022-07-09 10:00] VITALS: BP 112/45
[2022-07-09 10:10] VITALS: BP 110/62
[2022-07-09 10:20] VITALS: BP 96/62
[2022-07-09 10:30] VITALS: BP 109/68
== END 2022-07-09 10:45 | disposition home or self-care (01) ==
LOC: GI LAB 08:33
PROVIDERS: ATTEND Internal Medicine Gastroenterology
DX: Z08 Encounter for follow-up examination after completed treatment for malignant neoplasm (principal); D12.5 Benign neoplasm of sigmoid colon; K57.30 Diverticulosis of large intestine without perforation or abscess without bleeding; Z86.010 Personal history of colon polyps; I48.91 Unspecified atrial fibrillation
CPT/HCPCS: 45380; 45385; 99152; 99153; C1773; J2250; J3010; J7030; Z7512; A4620

== ENCOUNTER 2022-11-13 10:37 | Outpatient (CLI) | payer BC ==
[~2022-11-13 10:37] MED LIST changes: -ADAL40PE SUBCUT; -ASPI-1265 PO; -CARCD120C PO; +FLO0.4C PO; -MIDAZolam 1 MG/ML 5ML VIAL ONE; +OMEP20CA16 PO; +RIVA20TA PO; +TEST200V33 IM; -fentaNYL/PF 50MCG/1 ML 2ML syringe ONE
[2022-11-13 11:01] LABS: BASOPHILS # (AUTO) 0.1 X10'3 (0-0.2); BASOPHILS % (AUTO) 1.1 % (0-1); EOSINOPHILS # (AUTO) 0.4 X10'3 (0-0.9); EOSINOPHILS % (AUTO) 4.6 % (0-6); HEMATOCRIT 54.5 % (42.0-52.0); LYMPHOCYTES % (AUTO) 23.5 % (21-51); MEAN CORPUSCULAR HGB CONC 33.4 g/dL (33.0-36.5); MEAN CORPUSCULAR VOLUME 83.8 FL (78-98); MEAN PLATELET VOLUME 7.8 FL (7.4-10.4); MONOCYTES # (AUTO) 0.8 X10'3 (0-0.9); MONOCYTES % (AUTO) 9.2 % (2-12); NEUTROPHILS # (AUTO) 5.2 X10'3 (1.8-7.7); NEUTROPHILS % (AUTO) 61.6 % (42-75); PLATELET COUNT 242 X10'3 (140-440); RED CELL DISTRIBUTION WIDTH 14.1 % (11.5-14.5); WHITE BLOOD COUNT 8.4 X10'3 (4.5-11.0)
[2022-11-13 11:06] LABS: HEMOGLOBIN 18.2 g/dl (14.0-17.9)
[2022-11-19 11:13] LABS: TESTOSTERONE, FREE, DIRECT 16.3 pg/mL (6.6-18.1)
== END 2022-11-13 23:59 | disposition home or self-care (01) ==
LOC: LAB 10:37
PROVIDERS: ATTEND Family Medicine
DX: D58.2 Other hemoglobinopathies (principal); E29.1 Testicular hypofunction
CPT/HCPCS: 36415; 84402; 84403; 85025

== ENCOUNTER 2022-12-19 15:37 | Outpatient (CLI) | payer BC ==
[2022-12-19 16:06] LABS: BASOPHILS # (AUTO) 0.1 X10'3 (0-0.2); BASOPHILS % (AUTO) 0.8 % (0-1); EOSINOPHILS # (AUTO) 0.2 X10'3 (0-0.9); EOSINOPHILS % (AUTO) 2.7 % (0-6); HEMATOCRIT 53.6 % (42.0-52.0); LYMPHOCYTES # (AUTO) 1.8 X10'3 (1.1-4.8); LYMPHOCYTES % (AUTO) 23.2 % (21-51); MEAN CORPUSCULAR HEMOGLOBIN 28.2 PG (27.0-31.0); MEAN CORPUSCULAR VOLUME 83.1 FL (78-98); MEAN PLATELET VOLUME 7.9 FL (7.4-10.4); MONOCYTES # (AUTO) 0.7 X10'3 (0-0.9); MONOCYTES % (AUTO) 9.4 % (2-12); NEUTROPHILS % (AUTO) 63.9 % (42-75); PLATELET COUNT 249 X10'3 (140-440); RED BLOOD COUNT 6.45 X10'6 (4.70-6.10); RED CELL DISTRIBUTION WIDTH 15.3 % (11.5-14.5); WHITE BLOOD COUNT 7.8 X10'3 (4.5-11.0)
[2022-12-19 16:34] LABS: HEMOGLOBIN 18.2 g/dl (14.0-17.9)
== END 2022-12-19 23:59 | disposition home or self-care (01) ==
LOC: LAB 15:37
PROVIDERS: ATTEND Family Medicine
DX: D58.2 Other hemoglobinopathies (principal); E29.1 Testicular hypofunction
CPT/HCPCS: 36415; 84402; 84403; 85025

== ENCOUNTER 2023-01-06 11:40 | Outpatient (CLI) | payer BC ==
[2023-01-06 12:19] LABS: BASOPHILS # (AUTO) 0.1 X10'3 (0-0.2); BASOPHILS % (AUTO) 0.9 % (0-1); EOSINOPHILS # (AUTO) 0.2 X10'3 (0-0.9); EOSINOPHILS % (AUTO) 3.4 % (0-6); HEMATOCRIT 56.1 % (42.0-52.0); LYMPHOCYTES # (AUTO) 1.7 X10'3 (1.1-4.8); LYMPHOCYTES % (AUTO) 24.7 % (21-51); MEAN CORPUSCULAR HEMOGLOBIN 27.9 PG (27.0-31.0); MEAN CORPUSCULAR HGB CONC 33.5 g/dL (33.0-36.5); MEAN CORPUSCULAR VOLUME 83.2 FL (78-98); MEAN PLATELET VOLUME 8.6 FL (7.4-10.4); MONOCYTES # (AUTO) 0.6 X10'3 (0-0.9); MONOCYTES % (AUTO) 9.2 % (2-12); NEUTROPHILS # (AUTO) 4.3 X10'3 (1.8-7.7); NEUTROPHILS % (AUTO) 61.8 % (42-75); PLATELET COUNT 260 X10'3 (140-440); RED BLOOD COUNT 6.74 X10'6 (4.70-6.10); RED CELL DISTRIBUTION WIDTH 15.3 % (11.5-14.5); WHITE BLOOD COUNT 6.9 X10'3 (4.5-11.0)
[2023-01-06 13:18] LABS: HEMOGLOBIN 18.8 g/dl (14.0-17.9)
== END 2023-01-06 23:59 | disposition home or self-care (01) ==
LOC: LAB 11:40
PROVIDERS: ATTEND Family Medicine
DX: E29.1 Testicular hypofunction (principal); D58.2 Other hemoglobinopathies
CPT/HCPCS: 36415; 81256; 84402; 84403; 85025

== ENCOUNTER 2023-02-20 08:19 | Outpatient (CLI) | payer BC | END 2023-02-20 23:59 | disposition home or self-care (01) | LOC: RAD 08:19 | PROVIDERS: ATTEND Chiropractor | DX: M47.812 Spondylosis without myelopathy or radiculopathy, cervical region (principal); M48.02 Spinal stenosis, cervical region | CPT/HCPCS: 72050 ==

== ENCOUNTER 2023-02-20 08:30 | Outpatient (CLI) | payer BC ==
[2023-02-20 08:59] LABS: BASOPHILS # (AUTO) 0.1 X10'3 (0-0.2); BASOPHILS % (AUTO) 1.6 % (0-1); EOSINOPHILS # (AUTO) 0.3 X10'3 (0-0.9); EOSINOPHILS % (AUTO) 3.1 % (0-6); HEMATOCRIT 55.5 % (42.0-52.0); LYMPHOCYTES # (AUTO) 1.5 X10'3 (1.1-4.8); LYMPHOCYTES % (AUTO) 18.8 % (21-51); MEAN CORPUSCULAR HEMOGLOBIN 28.5 PG (27.0-31.0); MEAN CORPUSCULAR HGB CONC 34.3 g/dL (33.0-36.5); MEAN CORPUSCULAR VOLUME 83.2 FL (78-98); MEAN PLATELET VOLUME 8.3 FL (7.4-10.4); MONOCYTES # (AUTO) 0.5 X10'3 (0-0.9); MONOCYTES % (AUTO) 6.6 % (2-12); NEUTROPHILS # (AUTO) 5.7 X10'3 (1.8-7.7); NEUTROPHILS % (AUTO) 69.9 % (42-75); PLATELET COUNT 208 X10'3 (140-440); RED BLOOD COUNT 6.67 X10'6 (4.70-6.10); RED CELL DISTRIBUTION WIDTH 15.5 % (11.5-14.5); WHITE BLOOD COUNT 8.2 X10'3 (4.5-11.0)
== END 2023-02-20 23:59 | disposition home or self-care (01) ==
LOC: LAB 08:30
PROVIDERS: ATTEND Family Medicine
DX: D58.2 Other hemoglobinopathies (principal); E29.1 Testicular hypofunction
CPT/HCPCS: 36415; 84402; 84403; 85025

== ENCOUNTER → 2023-04-24 | Outpatient (CLI) | payer BC ==
[2023-04-24 08:33] LABS: BASOPHILS # (AUTO) 0.1 X10'3 (0-0.2); EOSINOPHILS # (AUTO) 0.3 X10'3 (0-0.9); EOSINOPHILS % (AUTO) 3.5 % (0-6); HEMATOCRIT 48.7 % (42.0-52.0); HEMOGLOBIN 16.9 g/dl (14.0-17.9); LYMPHOCYTES # (AUTO) 1.9 X10'3 (1.1-4.8); LYMPHOCYTES % (AUTO) 25.4 % (21-51); MEAN CORPUSCULAR HEMOGLOBIN 29.4 PG (27.0-31.0); MEAN CORPUSCULAR HGB CONC 34.6 g/dL (33.0-36.5); MEAN CORPUSCULAR VOLUME 84.9 FL (78-98); MEAN PLATELET VOLUME 7.8 FL (7.4-10.4); MONOCYTES # (AUTO) 0.8 X10'3 (0-0.9); MONOCYTES % (AUTO) 10.3 % (2-12); NEUTROPHILS # (AUTO) 4.4 X10'3 (1.8-7.7); NEUTROPHILS % (AUTO) 59.8 % (42-75); PLATELET COUNT 244 X10'3 (140-440); RED BLOOD COUNT 5.74 X10'6 (4.70-6.10); RED CELL DISTRIBUTION WIDTH 15.7 % (11.5-14.5); WHITE BLOOD COUNT 7.3 X10'3 (4.5-11.0)
== END | disposition home or self-care (01) ==
LOC: LAB 08:04
PROVIDERS: ATTEND Family Medicine
DX: D58.2 Other hemoglobinopathies (principal); E29.1 Testicular hypofunction; R06.02 Shortness of breath
CPT/HCPCS: 36415; 71046; 84402; 84403; 85025

== ENCOUNTER 2023-05-03 22:27 | Emergency (ER) | payer BC, MEDICARE ==
[~2023-05-03] VITALS: Ht 182.9 cm; Wt 88.6 kg
[2023-05-03 22:43] VITALS: BP 167/90
[2023-05-03] MEDS ORDERED: ketorolac tromethamine 15mg/ml inj. IM ONE (22:55)
[2023-05-03] MEDS ORDERED: LIDOcaine 5% patch TP STA (23:04)
[2023-05-03 23:32] LABS: BASOPHILS # (AUTO) 0.1 X10'3 (0-0.2); BASOPHILS % (AUTO) 0.9 % (0-1); EOSINOPHILS # (AUTO) 0.4 X10'3 (0-0.9); EOSINOPHILS % (AUTO) 3.9 % (0-6); HEMATOCRIT 48.4 % (42.0-52.0); HEMOGLOBIN 16.7 g/dl (14.0-17.9); LYMPHOCYTES # (AUTO) 2.4 X10'3 (1.1-4.8); LYMPHOCYTES % (AUTO) 26.4 % (21-51); MEAN CORPUSCULAR HEMOGLOBIN 29.3 PG (27.0-31.0); MEAN CORPUSCULAR HGB CONC 34.5 g/dL (33.0-36.5); MEAN PLATELET VOLUME 8.4 FL (7.4-10.4); MONOCYTES # (AUTO) 0.8 X10'3 (0-0.9); MONOCYTES % (AUTO) 8.7 % (2-12); NEUTROPHILS # (AUTO) 5.5 X10'3 (1.8-7.7); NEUTROPHILS % (AUTO) 60.1 % (42-75); PLATELET COUNT 237 X10'3 (140-440); RED CELL DISTRIBUTION WIDTH 15.3 % (11.5-14.5); WHITE BLOOD COUNT 9.1 X10'3 (4.5-11.0)
[2023-05-03 23:44] LABS: ALANINE AMINOTRANSFERASE 46 U/L (12-78); ALBUMIN 3.9 G/DL (3.4-5.0); ALBUMIN/GLOBULIN RATIO 1.2 (1.1-1.5); ALKALINE PHOSPHATASE 69 IU/L (46-116); BILIRUBIN,TOTAL 0.4 MG/DL (0.1-1.0); BLOOD UREA NITROGEN 16 MG/DL (7-18); BUN/CREATININE RATIO 12.5 (10.0-20.0); CALCIUM 8.4 MG/DL (8.5-10.1); CHLORIDE 103 MMOL/L (99-107); CREATININE 1.28 MG/DL (0.60-1.10); TOTAL CARBON DIOXIDE 23.7 MMOL/L (24-32); TOTAL PROTEIN 7.2 G/DL (6.4-8.2); eGFR 55 ML/MIN
[2023-05-04 00:19] LABS: ASPARTATE AMINO TRANSFERASE 28 U/L (10-37); GLUCOSE 163 MG/DL (70-104)
[2023-05-04 00:24] LABS: SODIUM 139 MMOL/L (135-145)
[2023-05-04 00:25] LABS: ANION GAP 12 (8-16)
== END 2023-05-04 01:14 | disposition home or self-care (01) ==
LOC: ER 22:29
DX: R07.9 Chest pain, unspecified (principal); M54.59 Other low back pain; G89.29 Other chronic pain; I11.0 Hypertensive heart disease with heart failure; E78.00 Pure hypercholesterolemia, unspecified; Z88.0 Allergy status to penicillin; Z79.899 Other long term (current) drug therapy; Z79.1 Long term (current) use of non-steroidal anti-inflammatories (NSAID); Z79.2 Long term (current) use of antibiotics
CPT/HCPCS: 36415; 71045; 80053; 83880; 84484; 85025; 85610; 93005; 96372; 99285; J1885

== ENCOUNTER 2023-05-05 08:40 | Outpatient (CLI) | payer BC | END 2023-05-05 23:59 | disposition home or self-care (01) | LOC: RAD 08:40 | PROVIDERS: ATTEND Internal Medicine Interventional Cardiology | DX: I08.8 Other rheumatic multiple valve diseases (principal); I48.0 Paroxysmal atrial fibrillation; I25.10 Atherosclerotic heart disease of native coronary artery without angina pectoris; R06.02 Shortness of breath; I65.23 Occlusion and stenosis of bilateral carotid arteries | CPT/HCPCS: 93306; 93880 ==

== ENCOUNTER 2023-12-10 04:18 | Emergency (ER) | payer BC, MEDICARE ==
[~2023-12-10] VITALS: Ht 185.4 cm; Wt 88.9 kg
[2023-12-10] MEDS: acetaminophen 1,000mg/100ml IV 100 ML IV STA (04:52)
[2023-12-10] MEDS: metoclopramide 5 mg/ml inj IV ONE (04:53)
[2023-12-10] MEDS: diphenhydrAMINE 50 mg/ml inj IV ONE (04:53)
[2023-12-10] MEDS: normal saline 1000ML IV soln IVB ONE (04:53)
[2023-12-10] MEDS: diphenhydrAMINE 50 mg/ml inj IV STA (05:26)
[2023-12-10 05:52] VITALS: BP 155/84; PULSE 80; RESP 16; TEMP 97.8; O2SAT 98
== END 2023-12-10 05:55 | disposition home or self-care (01) ==
LOC: ER 04:19
DX: R51.9 Headache, unspecified (principal); E78.00 Pure hypercholesterolemia, unspecified; I10 Essential (primary) hypertension; M19.90 Unspecified osteoarthritis, unspecified site; Z88.0 Allergy status to penicillin; Z79.899 Other long term (current) drug therapy; Z79.2 Long term (current) use of antibiotics
CPT/HCPCS: 96374; 96375; 96376; 99284; J0131; J1200; J2765; J7030

== ENCOUNTER → 2024-01-01 | Outpatient (CLI) | payer BC, MEDICARE ==
[~2024-01-01] MED LIST changes: +iohexol 350MG/ML 100ml bottle IV ONE
[2024-01-01 09:12] LABS: ALBUMIN 4.1 G/DL (3.4-5.0); ANION GAP 12 (8-16); BLOOD UREA NITROGEN 22 MG/DL (7-18); BUN/CREATININE RATIO 17.9 (10.0-20.0); CALCIUM 8.7 MG/DL (8.5-10.1); CHLORIDE 105 MMOL/L (99-107); CREATININE 1.23 MG/DL (0.60-1.10); GLUCOSE 133 MG/DL (70-104); POTASSIUM 4.5 MMOL/L (3.5-5.1); SODIUM 142 MMOL/L (135-145); TOTAL CARBON DIOXIDE 25.2 MMOL/L (24-32); eGFR 58 ML/MIN
== END | disposition home or self-care (01) ==
LOC: RAD 08:13
PROVIDERS: ATTEND Nurse Practitioner Family
DX: I65.23 Occlusion and stenosis of bilateral carotid arteries (principal); E78.5 Hyperlipidemia, unspecified; R06.02 Shortness of breath
CPT/HCPCS: 36415; 70498; 80048; 93880; J3490; Q9967

== ENCOUNTER 2024-02-08 09:13 | Outpatient (CLI) | payer BC, MEDICARE ==
[~2024-02-08 09:13] MED LIST changes: -iohexol 350MG/ML 100ml bottle IV ONE
[2024-02-08 09:56] LABS: BASOPHILS # (AUTO) 0.1 X10'3 (0-0.2); BASOPHILS % (AUTO) 0.9 % (0-1); EOSINOPHILS # (AUTO) 0.3 X10'3 (0-0.9); EOSINOPHILS % (AUTO) 3.8 % (0-6); HEMATOCRIT 49.7 % (42.0-52.0); LYMPHOCYTES # (AUTO) 1.7 X10'3 (1.1-4.8); MEAN CORPUSCULAR HGB CONC 34.3 g/dL (33.0-36.5); MEAN CORPUSCULAR VOLUME 87.7 FL (78-98); MEAN PLATELET VOLUME 7.9 FL (7.4-10.4); MONOCYTES # (AUTO) 0.7 X10'3 (0-0.9); MONOCYTES % (AUTO) 9.3 % (2-12); NEUTROPHILS # (AUTO) 4.7 X10'3 (1.8-7.7); PLATELET COUNT 275 X10'3 (140-440); RED BLOOD COUNT 5.67 X10'6 (4.70-6.10); RED CELL DISTRIBUTION WIDTH 15.6 % (11.5-14.5); WHITE BLOOD COUNT 7.5 X10'3 (4.5-11.0)
[2024-02-08 10:29] LABS: ALANINE AMINOTRANSFERASE 68 U/L (12-78); ALBUMIN 4.2 G/DL (3.4-5.0); ALBUMIN/GLOBULIN RATIO 1.1 (1.1-1.5); ALKALINE PHOSPHATASE 85 IU/L (46-116); ANION GAP 8 (8-16); ASPARTATE AMINO TRANSFERASE 36 U/L (10-37); BILIRUBIN,TOTAL 0.7 MG/DL (0.1-1.0); BLOOD UREA NITROGEN 15 MG/DL (7-18); BUN/CREATININE RATIO 13.6 (10.0-20.0); CHLORIDE 103 MMOL/L (99-107); CHOL/HDL RATIO 3.1 (0.00-4.99); CHOLESTEROL 154 MG/DL (0-200); FREE T4 (FREE THYROXINE) 0.81 NG/DL (0.73-1.40); GLUCOSE 116 MG/DL (70-104); HDL CHOLESTEROL 49 MG/DL (35-60); LDL CHOLESTEROL 76 MG/DL (50-100); POTASSIUM 4.4 MMOL/L (3.5-5.1); SODIUM 139 MMOL/L (135-145); THYROID STIMULATING HORMONE 1.22 ulU/ml (0.34-4.50); TOTAL PROTEIN 8.2 G/DL (6.4-8.2); TRIGLYCERIDES 227 MG/DL (20-135); eGFR 66 ML/MIN
[2024-02-09 15:39] LABS: CREATININE, URINE 27.7 mg/dL (Not Estab.); MICROALB/CRT, RATIO 671 mg/g creat (0-29); MICROALBUMIN,U,RANDOM 185.8 ug/mL (Not Estab.); PROSTATE SPECIFIC AG, SERUM 0.5 ng/mL (0.0-4.0); TESTOSTERONE, SERUM 114 ng/dL (264-916)
== END 2024-02-08 23:59 | disposition home or self-care (01) ==
LOC: LAB 09:13
PROVIDERS: ATTEND Physician Assistant
DX: Z12.5 Encounter for screening for malignant neoplasm of prostate (principal); D75.1 Secondary polycythemia; E29.1 Testicular hypofunction; I48.91 Unspecified atrial fibrillation; K62.5 Hemorrhage of anus and rectum; L71.9 Rosacea, unspecified; Z79.01 Long term (current) use of anticoagulants
CPT/HCPCS: 36415; 80053; 80061; 82043; 82570; 84153; 84154; 84402; 84403; 84439; 84443; 85025

== ENCOUNTER 2024-06-20 08:48 | Outpatient (CLI) | payer BC, MEDICARE | END 2024-06-20 23:59 | disposition home or self-care (01) | LOC: LAB 08:48 | PROVIDERS: ATTEND Physician Assistant | DX: D75.1 Secondary polycythemia (principal); E29.1 Testicular hypofunction ==

== ENCOUNTER 2024-06-20 08:55 | Outpatient (CLI) | payer BC, MEDICARE ==
[2024-06-20 09:34] LABS: BASOPHILS # (AUTO) 0.1 X10'3 (0-0.2); BASOPHILS % (AUTO) 0.9 % (0-1); EOSINOPHILS # (AUTO) 0.4 X10'3 (0-0.9); EOSINOPHILS % (AUTO) 4.2 % (0-6); HEMATOCRIT 48.9 % (42.0-52.0); HEMOGLOBIN 16.6 g/dl (14.0-17.9); LYMPHOCYTES # (AUTO) 2.3 X10'3 (1.1-4.8); LYMPHOCYTES % (AUTO) 26.3 % (21-51); MEAN CORPUSCULAR HEMOGLOBIN 28.1 PG (27.0-31.0); MEAN CORPUSCULAR VOLUME 82.6 FL (78-98); MEAN PLATELET VOLUME 7.9 FL (7.4-10.4); MONOCYTES # (AUTO) 0.8 X10'3 (0-0.9); MONOCYTES % (AUTO) 9.5 % (2-12); NEUTROPHILS # (AUTO) 5.1 X10'3 (1.8-7.7); NEUTROPHILS % (AUTO) 59.1 % (42-75); PLATELET COUNT 243 X10'3 (140-440); RED BLOOD COUNT 5.92 X10'6 (4.70-6.10); RED CELL DISTRIBUTION WIDTH 14.5 % (11.5-14.5); WHITE BLOOD COUNT 8.6 X10'3 (4.5-11.0)
[2024-06-21 08:23] LABS: TESTOSTERONE, SERUM 800 ng/dL (264-916)
== END 2024-06-20 23:59 | disposition home or self-care (01) ==
LOC: LAB 08:55
PROVIDERS: ATTEND Family Medicine
DX: E29.1 Testicular hypofunction (principal)
CPT/HCPCS: 36415; 82088; 84244; 84402; 84403; 85025

== ENCOUNTER 2024-08-08 08:44 | Outpatient (CLI) | payer BC, MEDICARE | END 2024-08-08 23:59 | disposition home or self-care (01) | LOC: VAS 08:44 | PROVIDERS: ATTEND Internal Medicine Interventional Cardiology | DX: I25.10 Atherosclerotic heart disease of native coronary artery without angina pectoris (principal); E78.5 Hyperlipidemia, unspecified; I10 Essential (primary) hypertension; Z95.5 Presence of coronary angioplasty implant and graft | CPT/HCPCS: 93978 ==

== ENCOUNTER 2024-08-11 08:46 | Outpatient (CLI) | payer BC, MEDICARE ==
[2024-08-11] VITALS (7 sets, daily range): BP systolic 128–157; BP diastolic 62–88; PULSE 60–89; RESP 18; O2SAT 99
[~2024-08-11] VITALS: Ht 182.9 cm; Wt 88.5 kg
[2024-08-11 09:38] LABS: ALANINE AMINOTRANSFERASE 42 U/L (12-78); ALBUMIN 3.9 G/DL (3.4-5.0); ALBUMIN/GLOBULIN RATIO 1.1 (1.1-1.5); ALKALINE PHOSPHATASE 66 IU/L (46-116); ANION GAP 8 (8-16); ASPARTATE AMINO TRANSFERASE 34 U/L (10-37); BILIRUBIN,TOTAL 0.6 MG/DL (0.1-1.0); BLOOD UREA NITROGEN 23 MG/DL (7-18); BUN/CREATININE RATIO 16.7 (10.0-20.0); CALCIUM 8.8 MG/DL (8.5-10.1); CHLORIDE 102 MMOL/L (99-107); CREATININE 1.38 MG/DL (0.60-1.10); GLUCOSE 145 MG/DL (70-104); SODIUM 140 MMOL/L (135-145); TOTAL PROTEIN 7.5 G/DL (6.4-8.2); eGFR 51 ML/MIN
[2024-08-11 09:39] LABS: CHOL/HDL RATIO 3.1 (0.00-4.99); CHOLESTEROL 154 MG/DL (0-200); HDL CHOLESTEROL 49 MG/DL (35-60); LDL CHOLESTEROL 81 MG/DL (50-100); TRIGLYCERIDES 170 MG/DL (20-135)
[2024-08-11] MEDS ORDERED: aminophylline 250mg/10ml inj. IV PRN (09:55)
[2024-08-11] MEDS ORDERED: nitroGLYCERIN 0.4mg SUBLingual tab SL PRN (09:55)
[2024-08-11] MEDS ORDERED: normal saline 500ml IV soln 500 ML IV ONE (09:55)
[2024-08-11] MEDS ORDERED: metoprolol tartrate 1mg/ml inj IV PRN (09:55)
[2024-08-11 10:15] LABS: POTASSIUM 4.1 MMOL/L (3.5-5.1)
[2024-08-11] MEDS: regadenoson 0.4mg/5ml syringe IV ONE (10:34)
== END 2024-08-11 23:59 | disposition home or self-care (01) ==
LOC: RAD 08:46
PROVIDERS: ATTEND Internal Medicine Interventional Cardiology
DX: I25.10 Atherosclerotic heart disease of native coronary artery without angina pectoris (principal); E78.5 Hyperlipidemia, unspecified
CPT/HCPCS: 36415; 78452; 80053; 80061; 93017; A9500; J2785; J7040

== ENCOUNTER 2024-10-07 09:00 | Outpatient (CLI) | payer BC, MEDICARE ==
[2024-10-07 09:56] LABS: BASOPHILS % (AUTO) 0.6 % (0-1); EOSINOPHILS # (AUTO) 0.3 X10'3 (0-0.9); EOSINOPHILS % (AUTO) 4.5 % (0-6); HEMATOCRIT 52.7 % (42.0-52.0); LYMPHOCYTES # (AUTO) 1.8 X10'3 (1.1-4.8); LYMPHOCYTES % (AUTO) 24.4 % (21-51); MEAN CORPUSCULAR HGB CONC 34.3 g/dL (33.0-36.5); MEAN CORPUSCULAR VOLUME 81.7 FL (78-98); MEAN PLATELET VOLUME 8.1 FL (7.4-10.4); MONOCYTES # (AUTO) 0.7 X10'3 (0-0.9); MONOCYTES % (AUTO) 9.8 % (2-12); NEUTROPHILS # (AUTO) 4.5 X10'3 (1.8-7.7); NEUTROPHILS % (AUTO) 60.7 % (42-75); PLATELET COUNT 206 X10'3 (140-440); RED BLOOD COUNT 6.44 X10'6 (4.70-6.10); RED CELL DISTRIBUTION WIDTH 15.7 % (11.5-14.5); WHITE BLOOD COUNT 7.4 X10'3 (4.5-11.0)
[2024-10-07 10:17] LABS: ALANINE AMINOTRANSFERASE 34 U/L (12-78); ALBUMIN/GLOBULIN RATIO 1.1 (1.1-1.5); ALKALINE PHOSPHATASE 69 IU/L (46-116); ANION GAP 10 (8-16); ASPARTATE AMINO TRANSFERASE 32 U/L (10-37); BILIRUBIN,TOTAL 0.7 MG/DL (0.1-1.0); BLOOD UREA NITROGEN 25 MG/DL (7-18); BUN/CREATININE RATIO 18.9 (10.0-20.0); CALCIUM 8.9 MG/DL (8.5-10.1); CHLORIDE 103 MMOL/L (99-107); CHOL/HDL RATIO 3.6 (0.00-4.99); CHOLESTEROL 164 MG/DL (0-200); CREATININE 1.32 MG/DL (0.60-1.10); FREE T4 (FREE THYROXINE) 0.79 NG/DL (0.73-1.40); GLUCOSE 150 MG/DL (70-104); HDL CHOLESTEROL 45 MG/DL (35-60); LDL CHOLESTEROL 82 MG/DL (50-100); MAGNESIUM 2.2 MG/DL (1.5-2.4); POTASSIUM 3.7 MMOL/L (3.5-5.1); SODIUM 140 MMOL/L (135-145); TOTAL PROTEIN 7.6 G/DL (6.4-8.2); TRIGLYCERIDES 233 MG/DL (20-135); eGFR 53 ML/MIN
[2024-10-07 10:21] LABS: HEMOGLOBIN 18.1 g/dl (14.0-17.9)
[2024-10-08 06:30] LABS: BILIRUBIN,URINE NEGATIVE (Neg); CLARITY,URINE CLEAR (Clear); COLOR,URINE YELLOW (Yellow); GLUCOSE, URINE NEGATIVE (Neg); KETONES,URINE NEGATIVE (Neg); LEUKOCYTE ESTERASE ,URINE NEGATIVE (Neg); NITRITES, URINE NEGATIVE (Neg); OCCULT BLOOD,URINE NEGATIVE (Neg); PH,URINE 5.5 (4.8-8.0); PROTEIN,URINE NEGATIVE (Neg); UROBILINOGEN,URINE 0.2 E.U/dL (0.2-1.0)
[2024-10-08 06:40] LABS: UA COLLECTION TYPE CLN CATCH MIDSTREAM
[2024-10-08 09:12] LABS: PROSTATE SPECIFIC AG, SERUM 0.6 ng/mL (0.0-4.0); PSA, FREE 0.21 ng/mL; TESTOSTERONE, SERUM 85 ng/dL (264-916)
== END 2024-10-07 23:59 | disposition home or self-care (01) ==
LOC: RAD 09:00
PROVIDERS: ATTEND Nurse Practitioner Family
DX: Z00.01 Encounter for general adult medical examination with abnormal findings (principal); R13.19 Other dysphagia; E29.1 Testicular hypofunction; K21.9 Gastro-esophageal reflux disease without esophagitis; K62.5 Hemorrhage of anus and rectum; N40.1 Benign prostatic hyperplasia with lower urinary tract symptoms; I10 Essential (primary) hypertension; Z76.89 Persons encountering health services in other specified circumstances; Z80.0 Family history of malignant neoplasm of digestive organs
CPT/HCPCS: 36415; 80053; 80061; 81003; 83735; 84153; 84154; 84402; 84403; 84439; 84443; 85025

== ENCOUNTER 2024-11-09 06:58 | Day surgery (SDC) | payer BC, MEDICARE ==
[~2024-11-09] VITALS: Ht 182.9 cm; Wt 93.1 kg
[~2024-11-09 06:58] MED LIST changes: -DABI150C PO; -TEST200V33 IM
[2024-11-09 07:18] VITALS: BP 157/85; PULSE 72; RESP 15
[2024-11-09] MEDS ORDERED: simethicone 40mg/0.6ml oral drops 30ml ONE (08:12)
[2024-11-09] MEDS ORDERED: propofol inj 20 ML IV ONE ×2 (08:41)
[2024-11-09 09:00] VITALS: BP 104/66; PULSE 65; RESP 13; O2SAT 99
[2024-11-09 09:10] VITALS: BP 107/62; PULSE 66; RESP 13; O2SAT 99
[2024-11-09 09:20] VITALS: BP 146/79; PULSE 65; RESP 11; O2SAT 99
[2024-11-09 09:30] VITALS: BP 147/84; PULSE 66; RESP 15; O2SAT 99
== END 2024-11-09 09:40 | disposition home or self-care (01) ==
LOC: GI LAB 06:58
PROVIDERS: ATTEND Internal Medicine Gastroenterology
DX: K92.1 Melena (principal); K64.8 Other hemorrhoids; K57.30 Diverticulosis of large intestine without perforation or abscess without bleeding; K21.00 Gastro-esophageal reflux disease with esophagitis, without bleeding; K63.89 Other specified diseases of intestine; K29.61 Other gastritis with bleeding; I48.91 Unspecified atrial fibrillation; Z95.5 Presence of coronary angioplasty implant and graft; Z88.0 Allergy status to penicillin; Z80.0 Family history of malignant neoplasm of digestive organs; I25.10 Atherosclerotic heart disease of native coronary artery without angina pectoris; Z98.890 Other specified postprocedural states
CPT/HCPCS: 43239; 45380; J2704; J7030; Z7512; 88305; A4620

== ENCOUNTER 2024-12-02 08:07 | Outpatient (CLI) | payer BC ==
[2024-12-02 08:42] LABS: BASOPHILS # (AUTO) 0.1 X10'3 (0-0.2); EOSINOPHILS # (AUTO) 0.3 X10'3 (0-0.9); EOSINOPHILS % (AUTO) 4.4 % (0-6); HEMATOCRIT 48.1 % (42.0-52.0); HEMOGLOBIN 16.6 g/dl (14.0-17.9); LYMPHOCYTES # (AUTO) 1.4 X10'3 (1.1-4.8); LYMPHOCYTES % (AUTO) 23.9 % (21-51); MEAN CORPUSCULAR HEMOGLOBIN 28.9 PG (27.0-31.0); MEAN CORPUSCULAR HGB CONC 34.5 g/dL (33.0-36.5); MEAN PLATELET VOLUME 8.1 FL (7.4-10.4); MONOCYTES # (AUTO) 0.6 X10'3 (0-0.9); MONOCYTES % (AUTO) 10.2 % (2-12); NEUTROPHILS # (AUTO) 3.6 X10'3 (1.8-7.7); NEUTROPHILS % (AUTO) 60.5 % (42-75); PLATELET COUNT 244 X10'3 (140-440); RED BLOOD COUNT 5.73 X10'6 (4.70-6.10); RED CELL DISTRIBUTION WIDTH 15.7 % (11.5-14.5)
[2024-12-02 08:48] LABS: ALANINE AMINOTRANSFERASE 43 U/L (12-78); ALBUMIN 3.9 G/DL (3.4-5.0); ALBUMIN/GLOBULIN RATIO 1.1 (1.1-1.5); ALKALINE PHOSPHATASE 72 IU/L (46-116); ANION GAP 7 (8-16); ASPARTATE AMINO TRANSFERASE 26 U/L (10-37); BILIRUBIN,TOTAL 0.7 MG/DL (0.1-1.0); BLOOD UREA NITROGEN 16 MG/DL (7-18); BUN/CREATININE RATIO 12.9 (10.0-20.0); CALCIUM 8.9 MG/DL (8.5-10.1); CHLORIDE 103 MMOL/L (99-107); CREATININE 1.24 MG/DL (0.60-1.10); GLUCOSE 127 MG/DL (70-104); POTASSIUM 4.2 MMOL/L (3.5-5.1); SODIUM 138 MMOL/L (135-145); TOTAL CARBON DIOXIDE 28.3 MMOL/L (24-32); TOTAL PROTEIN 7.6 G/DL (6.4-8.2); eGFR 57 ML/MIN
[2024-12-03 11:40] LABS: TESTOSTERONE, SERUM 134 ng/dL (264-916)
== END 2024-12-02 23:59 | disposition home or self-care (01) ==
LOC: LAB 08:07
PROVIDERS: ATTEND Nurse Practitioner Family
DX: Z51.81 Encounter for therapeutic drug level monitoring (principal)
CPT/HCPCS: 36415; 80053; 84402; 84403; 85025

== ENCOUNTER 2025-02-13 08:15 | Outpatient (CLI) | payer BC ==
[~2025-02-13 08:15] MED LIST changes: -FLO0.4C PO; +TAMS-55 PO
[2025-02-13 08:45] LABS: BASOPHILS # (AUTO) 0.1 X10'3 (0-0.2); BASOPHILS % (AUTO) 0.9 % (0-1); EOSINOPHILS # (AUTO) 0.4 X10'3 (0-0.9); EOSINOPHILS % (AUTO) 5.1 % (0-6); HEMOGLOBIN 17.2 g/dl (14.0-17.9); LYMPHOCYTES # (AUTO) 1.5 X10'3 (1.1-4.8); LYMPHOCYTES % (AUTO) 20.7 % (21-51); MEAN CORPUSCULAR HEMOGLOBIN 26.8 PG (27.0-31.0); MEAN CORPUSCULAR VOLUME 81.3 FL (78-98); MEAN PLATELET VOLUME 8.3 FL (7.4-10.4); MONOCYTES # (AUTO) 0.6 X10'3 (0-0.9); MONOCYTES % (AUTO) 8.3 % (2-12); NEUTROPHILS # (AUTO) 4.8 X10'3 (1.8-7.7); PLATELET COUNT 252 X10'3 (140-440); RED CELL DISTRIBUTION WIDTH 14.8 % (11.5-14.5); WHITE BLOOD COUNT 7.3 X10'3 (4.5-11.0)
[2025-02-13 08:53] LABS: ALANINE AMINOTRANSFERASE 39 U/L (12-78); ALBUMIN 3.9 G/DL (3.4-5.0); ALBUMIN/GLOBULIN RATIO 1.2 (1.1-1.5); ALKALINE PHOSPHATASE 75 IU/L (46-116); ANION GAP 9 (8-16); ASPARTATE AMINO TRANSFERASE 21 U/L (10-37); BILIRUBIN,TOTAL 0.6 MG/DL (0.1-1.0); BLOOD UREA NITROGEN 20 MG/DL (7-18); BUN/CREATININE RATIO 17.4 (10.0-20.0); CALCIUM 8.5 MG/DL (8.5-10.1); CHLORIDE 106 MMOL/L (99-107); CREATININE 1.15 MG/DL (0.60-1.10); GLUCOSE 148 MG/DL (70-104); POTASSIUM 4.3 MMOL/L (3.5-5.1); SODIUM 140 MMOL/L (135-145); TOTAL CARBON DIOXIDE 25.5 MMOL/L (24-32); TOTAL PROTEIN 7.1 G/DL (6.4-8.2); eGFR 62 ML/MIN
[2025-02-14 15:10] LABS: TESTOSTERONE, SERUM 183 ng/dL (264-916)
== END 2025-02-13 23:59 | disposition home or self-care (01) ==
LOC: LAB 08:15
PROVIDERS: ATTEND Nurse Practitioner Family
DX: D58.2 Other hemoglobinopathies (principal)
CPT/HCPCS: 36415; 80053; 84402; 84403; 85025

== ENCOUNTER 2025-04-24 08:14 | Outpatient (CLI) | payer BC ==
[2025-04-24 08:53] LABS: BASOPHILS # (AUTO) 0.1 X10'3 (0-0.2); EOSINOPHILS # (AUTO) 0.3 X10'3 (0-0.9); HEMATOCRIT 49.1 % (42.0-52.0); HEMOGLOBIN 16.3 g/dl (14.0-17.9); LYMPHOCYTES # (AUTO) 1.5 X10'3 (1.1-4.8); LYMPHOCYTES % (AUTO) 19.1 % (21-51); MEAN CORPUSCULAR HEMOGLOBIN 25.6 PG (27.0-31.0); MEAN CORPUSCULAR HGB CONC 33.1 g/dL (33.0-36.5); MEAN CORPUSCULAR VOLUME 77.2 FL (78-98); MEAN PLATELET VOLUME 8.4 FL (7.4-10.4); MONOCYTES # (AUTO) 0.7 X10'3 (0-0.9); NEUTROPHILS # (AUTO) 5.5 X10'3 (1.8-7.7); NEUTROPHILS % (AUTO) 67.9 % (42-75); PLATELET COUNT 244 X10'3 (140-440); RED BLOOD COUNT 6.36 X10'6 (4.70-6.10); RED CELL DISTRIBUTION WIDTH 15.7 % (11.5-14.5); WHITE BLOOD COUNT 8.1 X10'3 (4.5-11.0)
[2025-04-24 09:20] LABS: ALANINE AMINOTRANSFERASE 30 U/L (12-78); ALBUMIN 3.8 G/DL (3.4-5.0); ALBUMIN/GLOBULIN RATIO 1.1 (1.1-1.5); ALKALINE PHOSPHATASE 77 IU/L (46-116); ANION GAP 10 (8-16); ASPARTATE AMINO TRANSFERASE 25 U/L (10-37); BILIRUBIN,TOTAL 0.7 MG/DL (0.1-1.0); BLOOD UREA NITROGEN 18 MG/DL (7-18); BUN/CREATININE RATIO 16.8 (10.0-20.0); CALCIUM 8.5 MG/DL (8.5-10.1); CHLORIDE 104 MMOL/L (99-107); CHOL/HDL RATIO 3.1 (0.00-4.99); CHOLESTEROL 136 MG/DL (0-200); CREATININE 1.07 MG/DL (0.60-1.10); GLUCOSE 128 MG/DL (70-104); HDL CHOLESTEROL 44 MG/DL (35-60); LDL CHOLESTEROL 75 MG/DL (50-100); SODIUM 137 MMOL/L (135-145); TOTAL CARBON DIOXIDE 23.5 MMOL/L (24-32); TOTAL PROTEIN 7.3 G/DL (6.4-8.2); TRIGLYCERIDES 119 MG/DL (20-135); eGFR 68 ML/MIN
[2025-04-24 09:23] LABS: POTASSIUM 4.6 MMOL/L (3.5-5.1)
== END 2025-04-24 23:59 | disposition home or self-care (01) ==
LOC: LAB 08:14
PROVIDERS: ATTEND Nurse Practitioner Family
DX: E78.5 Hyperlipidemia, unspecified (principal); L50.9 Urticaria, unspecified; D45 Polycythemia vera
CPT/HCPCS: 36415; 80053; 80061; 83695; 85025

== ENCOUNTER 2025-04-24 08:20 | Outpatient (CLI) | payer BC ==
[2025-04-25 09:11] LABS: TESTOSTERONE, SERUM 544 ng/dL (264-916)
== END 2025-04-24 23:59 | disposition home or self-care (01) ==
LOC: LAB 08:20
PROVIDERS: ATTEND Nurse Practitioner Family
DX: D75.1 Secondary polycythemia (principal); E29.1 Testicular hypofunction
CPT/HCPCS: 36415; 82668; 82785; 84402; 84403; 86003

== ENCOUNTER 2025-07-10 08:16 | Outpatient (CLI) | payer BC ==
[2025-07-10 08:41] LABS: MEAN PLATELET VOLUME 8.2 FL (7.4-10.4); RED CELL DISTRIBUTION WIDTH 16.8 % (11.5-14.5)
--- NOTE | 2025-07-10 10:15 | RADIOLOGY REPORT ---
Procedure: CT CT CHEST LOW DOSE Reason for study/Clinical History: HX OF SMOKING 30+ YRS COMPARISON: None TECHNIQUE: Multidetector CT of the chest was performed from the lung apices to the upper abdomen without the use of intravenous contract. Axial, coronal and sagittal multiplanar reformats were performed. Radiation Dose Information: CT Dose: CTDI volume is 2.8 mGy. Dose-length product is 110.5 mGy*cm The dose indicators for CT are the volume Computed Tomography (CT) Dose Index (CTDIvol) and the Dose Length Product (DLP), and are measured in units of mGy and mGy-cm, respectively. These indicators are not patient dose, but values generated from the CT scanner acquisition factors. The report includes radiation exposure data for exposures received during this examination. FINDINGS: Lower neck: Normal thyroid. Lungs: COPD/emphysema. 0.3 cm nodule in the left lower lobe, image 147 Benign calcified granuloma in the right upper lobe, image 81 measures 0.4 cm. Heart/Vascular Structures: Severe 4 vessel coronary artery disease. Lymph Nodes: No adenopathy Pleura: No pleural effusion or significant pneumothorax. Musculoskeletal: No acute osseous abnormality. Multilevel degenerative changes of the spine. Soft tissues: Normal. Upper abdomen: Limited portions of the upper abdomen are unremarkable. IMPRESSION: COPD/emphysema. 0.3 cm nodule in the left lower lobe. Severe 4 vessel coronary artery disease. Lung-RADS Category 2: Benign appearance or behavior. Continue annual screening with low dose CT in 12 months.
[2025-07-11 08:13] LABS: TESTOSTERONE, SERUM 56 ng/dL (264-916)
[2025-07-13 13:13] LABS: TESTOSTERONE, FREE, DIRECT 1.7 pg/mL (6.6-18.1)
== END 2025-07-10 23:59 | disposition home or self-care (01) ==
LOC: RAD 08:16
PROVIDERS: ATTEND Nurse Practitioner Family
DX: Z12.2 Encounter for screening for malignant neoplasm of respiratory organs (principal); R91.1 Solitary pulmonary nodule; J84.10 Pulmonary fibrosis, unspecified; I25.10 Atherosclerotic heart disease of native coronary artery without angina pectoris; M47.814 Spondylosis without myelopathy or radiculopathy, thoracic region; Z87.891 Personal history of nicotine dependence
CPT/HCPCS: 36415; 71271; 84402; 84403; 85025

== ENCOUNTER 2025-08-20 04:17 | Emergency (ER) | payer BC ==
[~2025-08-20] VITALS: Ht 182.9 cm; Wt 86.4 kg
[2025-08-20 04:21] VITALS: TEMP 97
--- NOTE | 2025-08-20 04:32 | Physician Documentation ---
History of Present Illness ~ Chief Complaint: Back Pain Stated Complaint: FLANK PAIN Time Seen by MD: 04:26 Primary Medical Doctor: ONUR NOGUEIRA, Samuel Phillip, Margot Phillip HPI This is a 74-year-old gentleman with a prior history of back pain presents for evaluation of low back pain, midline to the left side, that has been present for several days, worse with position change, palliated by standing, luro-zuv-trxsymk medications did not seem to be helping. Had this in the past and was excellently helped by Brynn Forrester. No red flag of back pain such as urinary incontinence, fecal incontinence, urinary retention, saddle paresthesias. Denies any trauma. He states that occasionally pain radiates into the left lateral proximal anterior thigh. Denies any other concerns. Medication Reconciliation Allergies: Coded Allergies: Penicillins (Verified Allergy, Unknown, RASH, 01/09/11) Scheduled Amlodipine/Valsartan/Hctz (Exforge Hct 10-320-25 Mg Tab), 1 TAB PO DAILY, (Reported) Azithromycin (Zithromax), 250 MG PO DAILY Carvedilol* (Coreg*), 12.5 MG PO BID, (Reported) Omeprazole (Omeprazole), 1 CAP PO BID, (Reported) Potassium Chloride (Klor-Con), 20 MEQ PO DAILY, (Reported) Rivaroxaban (Xarelto), 1 TAB PO HS, (Reported) Rosuvastatin Calcium* (Crestor*), 20 TAB PO DAILY, (Reported) Tamsulosin Hcl* (Flomax*), 1 CAP PO DAILY, (Reported) Past Medical History Past Medical History: Coronary Artery Disease, High Cholesterol, Hypertension, Arthritis Past Surgical History: coronary bypass surgery, tonsillectomy, other Patient History: Patient reports no known family medical history. Alcohol Use: Occasionally Drug Use: none Lives with: Spouse Lives In: Home Occupation: employed Review of Systems ROS 10 point review of systems was performed and unless noted above in HPI is negative for acute process/complaint. Physical Exam Physical Exam Vital Signs: Temperature: 97.0, Source: Temporal, Heart Rate: 82, Respiratory Rate: 18, BP: 146/84, Pulse Oximetry: 97, Weight: 86.360 Oxygen Flow Rate: 0 Physical Exam Physical examination: GENERAL: Awake, alert, oriented, GCS 15, no apparent distress, uncomfortable appearing, answers questions, follows commands appropriately. HEENT: Atraumatic, normocephalic, pupils equal, extraocular muscles intact Active gross movements, sclerae anicteric, mucus membranes moist, no stridor. NECK: Midline, no JVD CARDIOVASCULAR: Good skin perfusion without evidence of pallor, mottling. PULMONARY: Nonlabored, symmetric chest rise, no audible wheezing, no accessory muscle use, no respiratory distress, speaking in full sentences. GASTROINTESTINAL: Not distended. NEUROLOGIC: Lucid with normal mental status. Normal facial symmetry. Moves all extremities symmetrically and with purpose. No truncal ataxia. Speech is fluid without evidence of dysarthria or aphasia, no focal deficits appreciated. EXTREMITIES: Acute deformities Skin: warm, dry PSYCHIATRIC: Normal affect, normal insight, normal concentration. Focused exam: [] Progress Results/Orders Results/Orders Orders - EROS ODEN DO Ct Lumbar Spine (08/20/25 04:27) Orphenadrine Citrate Inj. (Norflex Inj.) (08/20/25 05:40) Completed Orders - EROS ODEN DO Ct Lumbar Spine (08/20/25 04:27) Dexamethasone Inj (Decadron 10mg/Ml Inj) (08/20/25 04:27) Ketorolac Trometh 30mg/Ml Vial (Toradol (08/20/25 04:30) Hydrocodone/Apap 5/325mg Tab ([place] 5/32 (08/20/25 04:30) Medications Received in ER Medications (Trade) Dose Ordered Sig/Chad Route PRN Reason Start Time Stop Time Status Last Admin Dose Admin (Decadron 10mg/ ml inj) 10 mg ONCE STAT IM 08/20/25 04:27 08/20/25 04:28 DC 08/20/25 04:48 10 MG (Toradol inj. 30mg/ml) 30 mg ONCE ONCE IM 08/20/25 04:30 08/20/25 04:36 DC 08/20/25 05:05 30 MG ([place] 5/325mg tablet) 1 tab ONCE ONCE PO 08/20/25 04:30 08/20/25 04:31 DC 08/20/25 04:48 1 TAB Vital Signs 08/20/25 08/20/25 08/20/25 04:21 04:48 04:54 Temp 97.0 Pulse 82 Resp 18 18 18 B/P (MAP) 146/84 Pulse Ox 97 O2 Flow Rate 0 Medical Decision Making Additional information obtaine: family Findings Facility Status: ED Holds, [facility] process The plan was discussed with the patient, who demonstrates clear understanding of the plan and is in agreement with the plan unless otherwise noted in the chart. All questions have been answered, all concerns were addressed unless otherwise documented. I was available throughout their ED stay for frequent reassessment and questions. Differential Diagnoses (considered and possible or likely): [Lumbago, sciatica, muscle spasm, less likely lumbar spine fracture or dislocation. Clinically no evidence of cauda equina or conus medullaris] ??Differential Diagnoses (considered and unlikely, not requiring evaluation currently): [See above] MDM Data Please see [facility] for the following: Independent Historians and external Records Review. Historian: [Patient] Independent Historians: ?[] Medication Management: [Reviewed medication list] Social History and determinants: [Reviewed] Please see the body of the note for the following: Any independent interpretations of ECG, imaging studies. All vitals signs/haemodynamics, ordered tests were independently reviewed and interpreted by myself. Nursing triage complaint and vitals reviewed, additional nursing notes were reviewed as available and I agree unless otherwise noted or documented in contradiction in the chart Vital Signs: Independently reviewed Labs: Independently interpreted Imaging: Independently interpreted Old Medical Records: Independently reviewed, see HPI for relevant summary and information Pulse Oximetry: [100%] interpreted as [normal on room air] by me Additionally notably showing: [Hemodynamically stable. CT shows no acute fracture.] Tests considered but not ordered include: [Hematologic workup has been considered but does not appear to be necessary given mechanical nature of the injury.] MRI can be done on an outpatient basis Social Determinants of Health Impact: Patient was evaluated in [facility], or [facility] [place] to healthcare due to below par ratio of patient to medical providers. [] Comorbid Conditions Impacting Present Evaluation and Care/Treatment: [History of back pain] Management Discussions with other Healthcare Providers: [None] Treatment and Disposition Medication Management (Given or considered): [Multimodal pain management]. See EMR for details Consideration for Hospitalization/Escalation/Deescalation of Care: Admission for observation has been considered, [however the patient is able to tolerate p.o., their symptoms are controlled, they are able to rely on oral medications, and their chief complaint/diagnosis can be managed on outpatient basis.] ?ED Course:?[No significant improvement.] ?Shared decision making:?[Patient is hemodynamically stable for discharge home with follow with their primary care provider. [Patient already has [place] at home as well as Flexeril] Specific and cautious return precautions provided and discussed with full understanding. Any incidental findings were also discussed and follow up recommendations given. [] All questions answered. Patient/family were able to verbalize back return precautions. Patient/family agree to plan. Copies of imaging and laboratory studies were provided.] Code status:?FULL Please see the full Electronic Medical Record for full details of nursing documentation, medications list, other records of complete past medical history and conditions, vital signs, laboratory studies, and any radiologic study interpretations by radiologists. Portions of this note were completed using [employer] dictation software and as a result there may exist minor errors in spelling. I have reviewed elements of past family and social history and agree as included in note. Differential Dx:Considerations: Other (See the body of main note) Departure Disposition: 01 HOME / SELF CARE / HOMELESS Impression: Primary Impression: Back pain Condition: Improved Discharge Instructions: Acute Back Pain, Adult Referrals: NO PRIMARY CARE PROVIDER (PCP) Prescriptions Orphenadrine Citrate (Norflex) 100 Mg Tablet.sa 1 TAB PO Q12H PRN PRN for pain for 30 Days, #60 TAB 0 Refills Do not combine with the other muscle relaxants or alcohol Prov: EROS ODEN DO 08/20/25 Education Educated: Patient, Family Educated regarding: diagnosis, treatment, prognosis, need for follow up Signature Scribe Signature: No scribe Attestation: Date: Aug 20, 2025 Time: 04:32 This note accurately reflects clinical decisions, work performed by myself, Eros Oden, EROS DU DO Aug 20, 2025 04:32
[2025-08-20] MEDS: dexamethasone sod phosphate 10mg/ml inj IM STA (04:48)
[2025-08-20] MEDS: HYDROcodone/acetaminophen 5mg/325mg tablet PO ONE (04:48)
[2025-08-20] MEDS: ketorolac trometh 30MG/ML vial 30 MG/ML VIAL IM ONE (05:05)
--- NOTE | 2025-08-20 05:35 | RADIOLOGY REPORT ---
EXAM: CT CT LUMBAR SPINE INDICATION: low back pain --> L side COMPARISON: None TECHNIQUE: Multiple axial CT images of the lumbar spine were obtained using bone algorithm. Axial and coronal reformatting was done. Bone and soft tissue windows were reviewed. Radiation Dose Information: CT Dose: Dose-length product is 787 mGy*cm FINDINGS: Vertebral body height and alignment is relatively maintained. There are 6 non rib-bearing vertebrae with sacralization of the L6 vertebral body. T12-L1, disc osteophyte complex resulting in moderate impression on the ventral thecal sac, right greater than left, and mild spinal canal narrowing. L1-L2, disc osteophyte complex resulting in moderate impression on the ventral thecal sac and moderate spinal canal narrowing. L2-L3: Small diffuse disc bulge results in moderate impression on the ventral thecal sac and mild spinal canal narrowing. There is mild facet arthropathy bilaterally. At L3-L4, disc osteophyte complex, with diffuse disc herniation results in severe spinal canal narrowing and severe bilateral neural foraminal stenosis. Mild facet arthropathy. At L4-L5, disc herniation, moderate facet arthropathy and disc osteophyte complex results in severe bilateral neural foraminal narrowing and severe spinal canal stenosis. L5-L6, severe disc osteophyte complex with herniation and moderate facet arthropathy results in severe spinal canal stenosis and severe bilateral neural foraminal stenosis with probable abutment of the exiting nerve roots bilaterally. L6-S1 no significant spinal canal or neural foraminal stenosis. Incidental note of colonic diverticulosis. Nonobstructing left renal calculus. IMPRESSION: 1. No evidence of acute fracture or subluxation identified about the lumbar spine. 2. Transitional lumbosacral anatomy with sacralization of the L6 vertebral body. 3. Severe multilevel degenerative changes of the lumbar spine as described above with multiple levels of severe spinal canal stenosis and neural foraminal stenosis. MRI would be of benefit
[2025-08-20] MEDS ORDERED: ORPH100T4 PO (05:40)
[2025-08-20] MEDS: orphenadrine citrate 60mg/2ml inj. IM ONE (05:42)
[2025-08-20 05:47] VITALS: BP 120/78; PULSE 68; O2SAT 99
[2025-08-20 06:08] VITALS: RESP 18
== END 2025-08-20 06:08 | disposition home or self-care (01) ==
LOC: ER 04:17
DX: M54.50 Low back pain, unspecified (principal); E78.00 Pure hypercholesterolemia, unspecified; I10 Essential (primary) hypertension; I25.10 Atherosclerotic heart disease of native coronary artery without angina pectoris; M19.90 Unspecified osteoarthritis, unspecified site; Z88.0 Allergy status to penicillin; Z88.8 Allergy status to other drugs, medicaments and biological substances; Z90.89 Acquired absence of other organs; Z95.1 Presence of aortocoronary bypass graft
CPT/HCPCS: 72131; 96372; 99285; J1100; J1171; J1885; J2360

== ENCOUNTER 2025-08-30 12:14 | Outpatient (CLI) | payer BC ==
[~2025-08-30 12:14] MED LIST changes: +ORPH100T4 PO
--- NOTE | 2025-08-30 18:36 | RADIOLOGY REPORT ---
PROCEDURE: MR MRI THORACIC SPINE Indication: LOW BACK PAIN, UNSPECIFIED COMPARISON: None TECHNIQUE: Multiplanar multisequence images of the the thoracic spine are obtained. FINDINGS: The Thoracic vertebral body heights are maintained. Mxpy-sb-yfwwtyke multilevel disc space narrowing and desiccation. No abnormal marrow edema. The thoracic cord is normal morphology and signal. There is a central disc protrusion at T8-9 abutting the ventral aspect of the cord extending 4 mm posteriorly. The thecal sac measures 14 mm AP. No abnormal signal within the thoracic cord at this level. 3 mm broad-based disc protrusion at T12-L1 without high-grade spinal canal stenosis. IMPRESSION: Lvzd-[id number] thoracic degenerative disc disease. Central disc protrusion at T8-9 which abuts the ventral aspect of the cord at this level without definitive cord compression. No cord edema seen.
--- NOTE | 2025-08-31 06:05 | RADIOLOGY REPORT ---
PROCEDURE: MR MRI LUMBAR SPINE INDICATION: LOW BACK PAIN, UNSPECIFIED Exam Date: 08/30/2025 01:19 PM COMPARISON: MR MRI THORACIC SPINE on DOS: 08/30/25, CT CT LUMBAR SPINE on DOS: 08/20/25 TECHNIQUE: MRI lumbar spine without intravenous contrast. FINDINGS: Lumbar lordosis is maintained. Lumbarised transitional lumbosacral vertebral body. CONUS: Conus medullaris terminates at the L1-L2 level, demonstrates normal signal. CAUDA EQUINA: Unremarkable. OSSEOUS STRUCTURES: Vertebral body height is well maintained without evidence of a recent compression fracture. ALIGNMENT: No vertebral body listhesis is present. BONE MARROW: Edema of the adjacent angles of the bodies of L2-L3. Edema of the pedicles L5-S1 on the right. Endplate irregularity is noted at T12- L1, L1-L2, L2-L3, L3-L4, L4-L5 and L5-S1. Marginal endplate osteophytic spurring is noted at T12-L1, L1-L2, L2-L3, L3-L4, L4-L5 and L5-S1. Modic I changes at L3-4. Modic II changes at L5-S1. PARASPINAL SOFT TISSUES: Paraspinal soft tissues are unremarkable. DISCS: Disc desiccation at T12-L1, L1-L2, L2-L3, L3-L4, L4-L5 and L5-S1. Intervertebral disc height loss at T12-L1, L1-L2, L2-L3, L3-L4, L4-L5 and L5-S1. Multiple Schmorl's nodes of the endplates of L2-S1. Following levels detailed below: T12-L1: No spinal canal or neural foraminal stenosis. The facet joints are normal. L1-2: Central disc extrusion measured 8.6mm in anteroposterior dimension with 4.8mm of caudal extension. Mild spinal canal stenosis. No neural foraminal stenosis. Moderate facet arthrosis. L2-3: 4.2mm diffuse disc bulge. Mild spinal canal stenosis. No neural foraminal stenosis. Moderate facet arthrosis. L3-4: 7.3mm diffuse disc bulge. Severe spinal canal stenosis. Severe bilateral subarticular zone stenosis with bilateral descending L4 nerve root compression. Mild left foraminal stenosis. Moderate facet arthrosis. L4-5: 4.5mm diffuse disc bulge. Severe spinal canal stenosis. Severe bilateral subarticular zone stenosis with bilateral descending L5 nerve root compression. Mild left foraminal stenosis. Severe facet arthrosis. L5-S1: 4.1mm diffuse disc bulge. Severe right subarticular zone stenosis with right descending S1 nerve root compression. Mild bilateral foraminal stenosis. Severe facet arthrosis. IMPRESSION: 1. Large (8.6 mm) central disc extrusion at L1-L2 with mild spinal canal stenosis. 2. Severe spinal canal stenosis at L3-L4 and L4-L5 with severe bilateral subarticular zone stenosis and bilateral descending L4 (L3-L4) and L5 (L4- L5) nerve root compression. 3. Severe right subarticular zone stenosis at L5-S1 with right descending S1 nerve root compression. 4. Modic I changes at L3-L4 and Modic II changes at L5-S1. 5. Vertebral body and pedicle marrow edema at L2-L3 and right L5-S1.
== END 2025-08-30 23:59 | disposition home or self-care (01) ==
LOC: MRI 12:14
PROVIDERS: ATTEND Student in an Organized Health Care Education/Training Program
DX: M51.17 Intervertebral disc disorders with radiculopathy, lumbosacral region (principal); M51.25 Other intervertebral disc displacement, thoracolumbar region; M47.27 Other spondylosis with radiculopathy, lumbosacral region
CPT/HCPCS: 72146; 72148

== ENCOUNTER 2025-09-13 08:14 | Outpatient (CLI) | payer BC ==
[2025-09-13] VITALS (7 sets, daily range): BP systolic 125–161; BP diastolic 68–83; PULSE 67–93; RESP 14–16; O2SAT 100
[2025-09-13] MEDS ORDERED: regadenoson 0.4mg/5ml syringe IV ONE (08:55)
[2025-09-13] MEDS: regadenoson 0.4mg/5ml syringe IV ONE (10:17)
--- NOTE | 2025-09-13 11:24 | RADIOLOGY REPORT ---
Procedure: [facility] Exam Date: 09/13/2025 09:12 AM Reason for study/Clinical History: ATHSCL HEART DISEASE OF [place] CORONARY ARTERY W/O ANG PCTRS Comparison Study: [facility] SC[facility] on DOS: 08/11/24 Myocardial Perfusion Study with SPECT Technique: The patient received an intravenous injection of 8.8 mCi of technetium-99m sestamibi while at rest. After a short delay, SPECT tomographic images of the heart were obtained. The patient then went to the stress lab where they received an intravenous infusion of 0.[address] andard protocol. 35.4 mCi of technetium-99m sestamibi was injected intravenously immediately after the start of the lexiscan infusion. Gated SPECT tomographic images of the heart were acquired and processed. Findings: No reversible perfusion defect. There is Fixed inferior Wall defect. Inferior wall hypokinesis. End diastolic volume: 95 mL End systolic volume: 56 mL The left ventricular ejection fraction is 41 %. (normal greater than 50%) Impression: No reversible defect. Fixed inferior wall defect and inferior wall hypokinesis. The left ventricular ejection fraction is 41 %.
== END 2025-09-13 23:59 | disposition home or self-care (01) ==
LOC: RAD 08:14
PROVIDERS: ATTEND Nurse Practitioner Family
DX: I25.10 Atherosclerotic heart disease of native coronary artery without angina pectoris (principal); E78.5 Hyperlipidemia, unspecified; I48.0 Paroxysmal atrial fibrillation; I65.23 Occlusion and stenosis of bilateral carotid arteries; D45 Polycythemia vera; G47.33 Obstructive sleep apnea (adult) (pediatric)
CPT/HCPCS: 78452; 93017; A9500; J2785

== ENCOUNTER 2025-09-13 08:17 | Outpatient (CLI) | payer BC ==
[2025-09-13 08:44] LABS: MEAN PLATELET VOLUME 7.8 FL (7.4-10.4); RED CELL DISTRIBUTION WIDTH 17.6 % (11.5-14.5)
[2025-09-14 11:14] LABS: % FREE PSA 34.3 % (.); PROSTATE SPECIFIC AG, SERUM 0.7 ng/mL (0.0-4.0); TESTOSTERONE, SERUM 183 ng/dL (264-916)
== END 2025-09-13 23:59 | disposition home or self-care (01) ==
LOC: LAB 08:17
PROVIDERS: ATTEND Nurse Practitioner Family
DX: N50.89 Other specified disorders of the male genital organs (principal); E29.1 Testicular hypofunction
CPT/HCPCS: 36415; 84153; 84154; 84402; 84403; 85025

== ENCOUNTER → 2025-10-01 | Emergency (ER) | payer BC ==
[~2025-10-01] MED LIST changes: +HYDROcodone/acetaminophen 5mg/325mg tablet PO ONE; +ondansetron 4mg rapidly disintigrating tab PO ONE
--- NOTE | 2025-10-02 08:37 | RADIOLOGY REPORT ---
PROCEDURE: RT WRIST 3VW DATE: 10/01/2025 12:59 AM HISTORY: PAIN COMPARISON: None FINDINGS/IMPRESSION: Complex fracturing is seen of the distal right radius with significant displacement of fragments. The distal ulna demonstrates a mildly displaced ulnar styloid fracture. The carpal bones appear to be intact. [facility]
== END | disposition left against medical advice (07) ==
LOC: ER 00:24
DX: M25.531 Pain in right wrist (principal); Z53.21 Procedure and treatment not carried out due to patient leaving prior to being seen by health care provider
CPT/HCPCS: 73110